=== PATIENT | male | born 1955 | race African-American/Black ===

== ENCOUNTER 2019-02-18 02:19 | Inpatient (IN) | payer MEDICARE, MEDICAID, SELFPAY ==
[2019-02-18] VITALS (30 sets, daily range): BP systolic 87–168; BP diastolic 66–116; PULSE 95–192; RESP 14–35; TEMP 36.6–37.5; O2SAT 53–100
--- NOTE | ~2019-02-18 | XR_ITS ---
EXAMINATION: XR chest 1V portable DATE: 02/20/2019 06:43 INDICATION: Mechanical ventilation TECHNIQUE: frontal view of the chest was obtained. COMPARISON: Chest radiograph dated 02/19/19 FINDINGS: Endotracheal tube tip 2.9 cm above the cristina. Nasogastric tube tip in proximal side port in the body of the stomach. Percutaneous gastrostomy tube bulb projects over the body of the stomach. Lungs are clear with no focal airspace opacities, pleural effusion, pulmonary edema or pneumothorax. The cardiomediastinal silhouette is normal. 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 IMPRESSION: 1. Lines and tubes in expected positions. No acute cardiopulmonary disease. Reviewed, dictated and finalized at location A. Y MAKER
--- NOTE | ~2019-02-18 | XR_ITS ---
XR chest 1V portable DATE: 02/19/2019 06:03 INDICATION: Respiratory distress, mechanical ventilation TECHNIQUE: Portable supine AP chest on 02/19/2019 at 0531 hours COMPARISON: 02/18/2019 portable AP chest at 0303 hours FINDINGS: Endotracheal tube in satisfactory position, distal tip 3.8 cm above cristina. NG tube is note d in the stomach, the proximal port just beyond the diaphragmatic hiatus. No central lines. Mild infiltrate or atelectasis is suggested in the lower lung zones, right greater than left. Bilateral hyperinflation. Normal heart size. Aortic unfolding. No pulmonary vascular congestion or pleural effusion or pneumoth orax. IMPRESSION: Bilateral lower lung infiltrate, primarily on the right Reviewed, dictated and finalized at location A. IN FIXER
--- NOTE | ~2019-02-18 | XR_ITS ---
EXAMINATION: XR chest 1V portable DATE: 02/24/2019 06:00 INDICATION: Acute respiratory failure TECHNIQUE: frontal view of the chest was obtained. COMPARISON: Chest radiograph dated 02/23/2019 FINDINGS: Left internal jugular central venous catheter with distal tip at the midsuperior vena cava. Persisten t mild increased reticular pattern in the bilateral lower lung zones. No pleural effusion or pneumoth orax. Heart size is normal. Moderate degenerative skeletal changes at the bilateral shoulders. IMPRESSION: 1. Unchanged mild increased interstitial pattern at the bilateral lower lung zones which could repres ent atelectasis, pneumonia or mild pulmonary edema. Reviewed, dictated and finalized at location A. UNITY THEATER ACTOR IMPRESSION: 1. Unchanged mild increased interstitial pattern at the bilateral lower lung [place] which could represent atelectasis, pneumonia or mild pulmonary edema.
--- NOTE | ~2019-02-18 | XR_ITS ---
EXAMINATION: XR chest 1V portable DATE: 02/22/2019 05:45 INDICATION: Acute respiratory failure. TECHNIQUE: A single frontal view of the chest was obtained. COMPARISON: Chest single view 02/21/2019 FINDINGS: The chest demonstrates clear lungs without pneumonia, pleural effusion, or pneumothorax. Th e heart size is normal. The endotracheal tube tip is 2.7 cm above the cristina. A left internal jugular central venous catheter is seen with tip in the superior vena cava. The nasogastric tube tip is in t he stomach. IMPRESSION: 1. No acute cardiopulmonary disease. Reviewed, dictated and finalized at location A. ITAL SUPERINTENDENT
--- NOTE | ~2019-02-18 | XR_ITS ---
XR chest ET placement DATE: 02/18/2019 03:14 INDICATION: Cough, shortness of breath TECHNIQUE: Portable supine AP chest on 02/18/2019 at 0303 hours COMPARISON: 01/31/2019 portable AP chest FINDINGS: An endotracheal tube is in place in satisfactory position, the distal tip 4.3 cm above lucas na. Bilateral hyperinflation. There is patchy infiltrate at the right lung base which may be due to pneum onia or aspiration pneumonitis. The lungs otherwise appear clear of infiltrate or consolidation. No p leural effusion or pulmonary vascular congestion or pneumothorax. Normal heart size. There is aortic unfolding. No hilar or mediastinal enlargement is evident. IMPRESSION: ET tube in satisfactory position Right basilar right lower lobe infiltrate which may be due to pneumonia or aspiration pneumonitis Bilateral hyperinflation Reviewed, dictated and finalized at Location A. Reviewed, dictated and finalized at location A. TEGIC PLANNING MANAGER IMPRESSION: ET tube in satisfactory position Right basilar right lower lobe infiltrate which may be due to pneumonia or aspi ration pneumonitis Bilateral hyperinflation
--- NOTE | ~2019-02-18 | XR_ITS ---
EXAMINATION: XR chest 1V portable DATE: 02/23/2019 06:48 INDICATION: Acute respiratory failure TECHNIQUE: frontal view of the chest was obtained. COMPARISON: Chest radiograph dated 02/22/2019 FINDINGS: Left internal jugular central venous catheter with distal tip at the midsuperior vena cava. Subtle in creased opacities in the right lower lung zone. No pleural effusion or pneumothorax. Heart size is no rmal. Degenerative skeletal changes in the spine and at both shoulders. IMPRESSION: 1. Subtle increasing opacities in the right lower lung zone which could represent atelectasis, pneumo sheryl or mild pulmonary edema. Reviewed, dictated and finalized at location A. NICAL ARCHITECT IMPRESSION: 1. Subtle increasing opacities in the right lower lung zone which could represe nt atelectasis, pneumonia or mild pulmonary edema.
--- NOTE | ~2019-02-18 | XR_ITS ---
EXAMINATION: XR chest 1V portable DATE: 02/21/2019 06:19 INDICATION: Acute respiratory failure. TECHNIQUE: A single frontal view of the chest was obtained on 2 radiographs. COMPARISON: Chest single view 02/20/2019, chest 2 views 01/06/2019 FINDINGS: The patient is rotated to his right. There is mild elevation of right hemidiaphragm. No pne umonia, pleural effusion, or pneumothorax. The heart size is normal. The endotracheal tube tip is 2.5 cm above the cristina. A left internal jugular central venous catheter is seen with tip in the superio r vena cava. IMPRESSION: 1. No acute cardiopulmonary disease. Reviewed, dictated and finalized at location D. RE ENGINEER
--- NOTE | ~2019-02-18 | XR_ITS ---
XR chest port-a-cath/central 02/20/2019 11:52 Indication: Central line placement Procedure: AP view of the chest Comparison: Comparison to multiple prior studies sequentially, with oldest reviewed study dated 01/22. Findings: Endotracheal tube tip 2.6 cm above the cristina. NG tube in the stomach. Left IJ central line tip in the CC. Subtle right basilar infiltrates. No pleural effusion, edema or pneumothorax. Impression: 1: Subtle right basilar infiltrates, atelectasis versus pneumonia. Reviewed, dictated and finalized at location A. MATIC EQUIPMENT TECHNICIAN Impression: 1: Subtle right basilar infiltrates, atelectasis versus pneumonia.
--- NOTE | ~2019-02-18 | XR_ITS ---
XR abdomen NG/feed tube insert DATE: 02/18/2019 04:36 INDICATION: Nasogastric tube placement TECHNIQUE: Portable supine AP view on 02/18/2019 at 0431 hours COMPARISON: None FINDINGS: A nasogastric tube is present in the gastric fundus, the proximal port situated just distal to the diaphragmatic hiatus. A catheter overlies the lumbar spine. Degenerative spurring of the thoracic and lumbar spine. Possible fracture deformity, likely chronic, of L1. IMPRESSION: NG tube in gastric fundus Reviewed, dictated and finalized at Location A. Reviewed, dictated and finalized at location A. WORKER IMPRESSION: NG tube in gastric fundus
--- NOTE | 2019-02-18 02:21 | ED.SOB ---
HPI - SOB/Dyspnea General Chief Complaint: Shortness of Breath/Dyspnea Stated Complaint: resp distress Time Seen by Provider: 02/18/19 02:22 Source: EMS Mode of arrival: EMS Limitations: other (Pt is nonverbal.) History of Present Illness HPI Narrative: The pt is a 64 y/o male who presents to the ED, via EMS, c/o respiratory distress onset approximately 0200. Per EMS, a nurse at [facility] went to feed him at 0200 and noticed him gurgling. EMS notes that the pt recently was discharged from this hospital after he had pneumonia. Per EMS, pt will look around when stimulated physically, but is nonverbal otherwise. HPI is limited due to the pt being nonverbal. MD elicited complaint: shortness of breath (Respiratory distress) Pertinent past history: pneumonia Onset (ago): minute(s) (Approximately 20) Associated symptoms: other (Unobtainable) Related Data Home Medications Medication Instructions Recorded Confirmed Eliquis 5 mg FEEDING TUBE BID 01/06/19 02/18/19 Probiotic (S.boulardii) 250 mg FEEDING TUBE BID 01/06/19 02/18/19 cholecalciferol (vitamin D3) 1,000 unit FEEDING TUBE DAILY 01/06/19 02/18/19 [Vitamin D3] docusate sodium 50 mg FEEDING TUBE DAILY 01/06/19 02/18/19 levetiracetam [Keppra] 1,500 mg FEEDING TUBE Q12H 01/06/19 02/18/19 oxcarbazepine 300 mg FEEDING TUBE TID 01/06/19 02/18/19 risperidone 1 mg FEEDING TUBE BID 01/06/19 02/18/19 trazodone 25 mg FEEDING TUBE HS PRN 01/06/19 02/18/19 valproic acid (as sodium salt) 500 mg FEEDING TUBE TID 01/06/19 02/18/19 metoprolol tartrate 25 mg FEEDING TUBE DAILY 02/18/19 02/18/19 Allergies Allergy/AdvReac Type Severity Reaction Status Date / Time aspirin Allergy Unknown Unknown Verified 01/31/19 18:16 codeine Allergy Unknown Unknown Verified 01/31/19 18:16 morphine Allergy Unknown Unknown Verified 01/31/19 18:16 Review of Systems Review of Systems: ROS unobtainable: other (due to pt being nonverbal.) PMF Past Medical History Medical History Acute hypokalemia Chronic anticoagulation On Eliquis Due to chronic atrial fibrillation Chronic atrial fibrillation CVA (cerebral vascular accident) Hepatitis C Hypertension Pneumonia Schizoaffective schizophrenia Seizure disorder Sepsis Surgical History Surgical History Gastrostomy tube dependent Family History Family History Unknown Unknown family medical history Social History Social History Social History: The patient resides at [facility]. He is chronically NPO with a g-tube in place. It is unclear how long the patient has been in a care home but his current care home orders appears start in August of 2018. The patient was probably a smoker as he repetitively asks for a dispensary technician. His alcohol use history is unobtainable. The patient has a state resuscitation form on his chart with full code marked however the form has not been signed. Smoking status: Former smoker Alcohol intake: unknown Substance use: unknown Substance use type: does not use Additional living arrangements comments: Lives at [facility]. Additional occupation/education comments: Disabled Gender identity (if verbalized by the patient): Male Spiritual care concerns: No Agree to blood products: Yes Exam Narrative: Exam Narrative: Physical exam is limited due to the pt's clinical condition. Const: General: in distress severe and ill appearing acutely and chronically Resp: Effort & Inspection: other (Gasping respirations) Auscultation: diminished lung sounds and other (Gurgling upper airway noises noted) Cardio: Rate: tachycardic Rhythm: abnormal rhythm irregularly irregular Skin: General skin exam: normal color Neuro: Speech: total aphasia Cours
[2019-02-18] MEDS: MIDAZOLAM HCL 2 MG/2 ML VIAL 4 MG IV PUSH (02:48)
[2019-02-18] MEDS: SODIUM CHLORIDE 0.9% IV 1,000 ML 999 ML (03:03)
[2019-02-18 03:04] LABS: Hematocrit 37.7 % (42.0-52.0); Mean Corpuscular HGB Conc 29.2 g/dl (32-36); Mean Corpuscular Hemoglobin 29.1 pg (26-34); Mean Corpuscular Volume 99.7 fl (80-100); Red Blood Count 3.78 M/mm3 (4.6-6.20); Red Cell Distribution Width 14.7 % (11.5-14.5)
[2019-02-18] MEDS: PROPOFOL IV EMULSION 100 ML 2 MG (03:11)
[2019-02-18 03:15] LABS: Lactic Acid Reflex 3.8 mmol/L (0.7-2.1); Partial Thromboplastin Time 29.5 SECONDS (22.3-36.8)
[2019-02-18 03:17] LABS: Alanine Aminotransferase 20 U/L (4-50); Albumin Level 2.9 g/dL (3.5-5.1); Alkaline Phosphatase 163 U/L (38-126); Aspartate Amino Transferase 53 U/L (17-59); Bilirubin,Total 0.7 mg/dL (0.2-1.3); Blood Urea Nitrogen 28 mg/dL (9-20); CRP 5.4 mg/dL (<1.0); Calcium 9.1 mg/dL (8.4-10.2); Carbon Dioxide 23 mmol/L (22-30); Chloride 108 mmol/L (98-107); Estimated Glomerular Filt Rate > 60; Glucose 200 mg/dL (75-110); Potassium 5.4 mmol/L (3.4-5.0); Sodium 140 mmol/L (137-145)
[2019-02-18 03:20] LABS: INR 1.5; Prothrombin Time 17.4 Seconds (11.1-14.7)
[2019-02-18 03:25] LABS: Band Neutrophils Percent 2 % (0-6); Lymphocytes Absolute Manual 7.35 K/mm3 (1.1-4.5); Metamyelocytes Percent 2 %; Monocytes Absolute Manual 1.05 K/mm3 (0.1-0.90); Monocytes Percent Manual 5 % (3-9); Neutrophils Absolute Manual 12.18 K/mm3 (1.3-6.7); Neutrophils Percent Manual 56 % (46-73); Total Cells Counted 100
[2019-02-18 03:26] LABS: Platelet Clumps Present; Platelet Estimate Adequate (Adequate)
[2019-02-18] MEDS: SODIUM CHLORIDE 0.9% IV 1,000 ML 999 ML IV CONT (03:27)
[2019-02-18 03:29] LABS: Atypical Lymphocytes Present; Hypochromasia 1+ (NORMAL); Large Platelets Present
[2019-02-18 03:46] LABS: Base Excess ABG -4.5 mEq/l (+/-2.0); Fractional Inspired Oxygen 50 %; HCO3 ABG 20.7 mEq/l (22.0-26.0); Oxygen Content ABG 14.9 %vol (16.0-22.0); Oxygen Saturation ABG 97.8 % (95.0-100.0); Oxyhemoglobin 96.2 % THb (90.0-100.0); PCO2 ABG 38.5 mmHg (35.0-45.0); PO2 ABG 109.2 mmHg (80.0-100.0); PO2 FiO2 Ratio Arterial Blood 2.18 %; Total Hemoglobin 10.9 g/dL (12.0-18.0); pH ABG 7.348 (7.350-7.450)
[2019-02-18 03:47] LABS: Modified Allen's Test Unable to perform; Site Drawn RIGHT BRACHIAL
[2019-02-18 03:48] LABS: Device VENTILATOR
[2019-02-18 03:49] LABS: Arterial Blood Gas PEEP 5 cmH2O; Arterial Blood Gas Tidal Volume 450 ml; Arterial Blood Gas Vent Mode CMV; Arterial Blood Gas Ventilator rate 12 /MIN
[2019-02-18] MEDS: AMPICILLIN SODIUM/SULBACTAM 3 GM in SODIUM CHLORIDE 0.9% IV 100 ML IVPB ×4 (04:08→23:16)
[2019-02-18 04:15] LABS: Add Urine Microscopic? YES; Appearance Urine Clear (Clear); Bacteria Urine Trace /hpf; Bilirubin Urine 1+ (Negative); Blood Urine Negative (Negative); Color Urine Amber (Yellow); Glucose Urine UA Negative (Negative); Hyaline Casts Urine 50+ /lpf; Ketones Urine Negative (Negative); Leukocyte Esterase Ur Negative LEU/UL (Negative); Mucus Urine Moderate /lpf; Nitrate Urine Negative (Negative); Protein Urine 1+ mg/dL (Negative); Specific Grav Ur 1.028 (1.001-1.035); Squamous Epithelial Cell Urine Moderate /hpf (Few)
--- NOTE | 2019-02-18 04:45 | PM.IMHP ---
H&P: HPI History of Present Illness Chief complaint: acute on chronic respiratory failure with hypoxia Narrative: Date and time of patient contact: 02/18/2019 at 5:45 a.m. Yves Rodriguez is a 64 year old male with a past medical history of schizoaffective schizophrenia, CVAs with chronic dysphagia, seizure disorder and gastrotomy tube dependent who presented to the ER with respiratory distress. residential staff reported that when they went into the patient's room at 2:00 a.m. to feed him the patient was gurgling. His oxygen saturations on arrival to the ER were in the 40s on 15 L non-rebreather. The patient was also found to be in AFib RVR and was started on Cardizem drip in the ER. The patient was briefly hypotensive following intubation but this has since resolved. He underwent RSI with succinylcholine, Versed and then continued sedation with propofol. Review of Systems Review of Systems: ROS unobtainable: unobtainable due to mental condition PMFSH Past Medical History Medical History Acute hypokalemia Chronic anticoagulation On Eliquis Due to chronic atrial fibrillation Chronic atrial fibrillation CVA (cerebral vascular accident) Hepatitis C Hypertension Pneumonia Schizoaffective schizophrenia Seizure disorder Sepsis Surgical History Surgical History Gastrostomy tube dependent Family History Family History Unknown Unknown family medical history Social History Social History Social History: The patient resides at [facility]. He is chronically NPO with a g-tube in place. It is unclear how long the patient has been in a group home but his current group home orders appears start in August of 2018. The patient was probably a smoker as he repetitively asks for a foundry finisher. His alcohol use history is unobtainable. The patient has a state resuscitation form on his chart with full code marked however the form has not been signed. Smoking status: Former smoker Alcohol intake: unknown Substance use: unknown Substance use type: does not use Additional living arrangements comments: Lives at [facility]. Additional occupation/education comments: Disabled Gender identity (if verbalized by the patient): Male Spiritual care concerns: No Agree to blood products: Yes Meds Home Medications and Allergies Home Medications Medication Instructions Recorded Confirmed Type Eliquis 5 mg FEEDING TUBE BID 01/06/19 02/18/19 History Probiotic (S.boulardii) 250 mg FEEDING TUBE BID 01/06/19 02/18/19 History cholecalciferol (vitamin D3) 1,000 unit FEEDING TUBE DAILY 01/06/19 02/18/19 History [Vitamin D3] docusate sodium 50 mg FEEDING TUBE DAILY 01/06/19 02/18/19 History levetiracetam [Keppra] 1,500 mg FEEDING TUBE Q12H 01/06/19 02/18/19 History oxcarbazepine 300 mg FEEDING TUBE TID 01/06/19 02/18/19 History risperidone 1 mg FEEDING TUBE BID 01/06/19 02/18/19 History trazodone 25 mg FEEDING TUBE HS PRN 01/06/19 02/18/19 History valproic acid (as sodium salt) 500 mg FEEDING TUBE TID 01/06/19 02/18/19 History metoprolol tartrate 25 mg FEEDING TUBE DAILY 02/18/19 02/18/19 History Allergies Allergy/AdvReac Type Severity Reaction Status Date / Time aspirin Allergy Unknown Unknown Verified 01/31/19 18:16 codeine Allergy Unknown Unknown Verified 01/31/19 18:16 morphine Allergy Unknown Unknown Verified 01/31/19 18:16 Vital Signs Vital Signs - 24 hr 02/18/19 02:17 02/18/19 02:43 02/18/19 02:44 Pulse Rate 192 H 152 H Respiratory Rate 35 H 33 H Blood Pressure 168/108 H 150/116 H Pulse Oximetry 53 L 96 02/18/19 02:45 02/18/19 02:48 02/18/19 02:55 Pulse Rate 172 H 132 H 172 H Respiratory Rate 18 22 H Blood Pressure 87/66 L Pulse Oximetry 95 100 96
--- NOTE | 2019-02-18 04:56 | PC.NURSE ---
0227 pt O2 saturation dropping on 15L NRB and pt being prepared for intubation. pt being oxygenated with BVM by respiratory. pt was given 20mg of etomidate and 100mg succinylcholine. ERP intubated with 7.5 ET tube and tube was 26 at teeth. respiratory started to bag pt and O2 increased to 98%.
--- NOTE | 2019-02-18 05:18 | ECG_ITS ---
Measurements Intervals [place] Rate: 151 P: [place]: 0 QRS: -36 QRSD: 68 T: 81 QT: 283 QTc: 449 Interpretive Statements ATRIAL FLUTTER/TACHYCARDIA WITH RAPID VENTRICULAR RESPONSE LEFT AXIS DEVIATION NONSPECIFIC ST & T-WAVE ABNORMALITY- DIFFUSE LEADS BASELINE ARTIFACT- V3-V6 ABNORMAL ECG Electronically Signed On 02-18-2019 8:20:11 CATEGORY DIRECTOR by Piyush Contreras D.O.
[2019-02-18] MEDS: PROPOFOL IV EMULSION 100 ML 2 MG IV CONT (05:40)
[2019-02-18 05:58] LABS: Reflex Lactic Acid Yes or No Add Lactic
[2019-02-18] MEDS: levETIRAcetam 1000MG/NACL100ML 1,000 MG/100 ML BAG 400 MG IVPB (06:14)
[2019-02-18] MEDS: LACTATED RINGERS 1,000 ML 125 ML IV CONT ×2 (06:14→15:34)
--- NOTE | 2019-02-18 06:53 | ADMGEN ---
This patient, Yves Rodriguez, was admitted to Intensive Care Unit-4 at 0534. Patient/family oriented to hospital policies and general routines including ID bracelet, bed and alarms, visiting hours, pain management, procedures, bathroom and other care routines, personal items, smoking policy, room service/diet, and visiting hours. Valuables list has been completed. Information on how to activate the Rapid Response Team has been discussed. Patient/Family are encouraged to report perceived risks to care and to ask questions if they do not understand what they are told or what they should do.
[2019-02-18 07:03] LABS: Lactic Acid 4.8 mmol/L (0.7-2.1)
--- NOTE | 2019-02-18 12:23 | WPDINTPN ---
Progress Note: A&P Assessment and Plan (1) Acute and chronic respiratory failure: Qualifiers: Respiratory failure complication: hypoxia Qualified Code(s): J96.21 - Acute and chronic respiratory failure with hypoxia Code(s): J96.20 - Acute and chronic respiratory failure, unspecified whether with hypoxia or hypercapnia Status: Acute Assessment and Plan: MV support, serial ABGs, weaning trials as warranted. (2) Aspiration into airway: Qualifiers: Encounter type: initial encounter Qualified Code(s): T17.908A - Unspecified foreign body in respiratory tract, part unspecified causing other injury, initial encounter Code(s): T17.908A - Unspecified foreign body in respiratory tract, part unspecified causing other injury, initial encounter Status: Acute Assessment and Plan: NPO (3) Seizure disorder: Code(s): G40.909 - Epilepsy, unspecified, not intractable, without status epilepticus Status: Chronic Assessment and Plan: continue home Rx (4) Chronic atrial fibrillation: Code(s): I48.20 - Chronic atrial fibrillation, unspecified Status: Chronic Assessment and Plan: rate controlled, anticoagulated Subjective Date/time seen: 02/18/19 12:23 Exam Const: Other: sedated Eyes: Conjunctivae: conjunctivae normal Sclera: sclerae normal Pupils: PERRL Chest: Chest palpation & inspection: normal inspection of the chest Other: coarse bilaterally Cardio: Heart sounds: S1 normal and S2 normal GI: Auscultation: hypoactive bowel sounds Skin: Nails: normal Neuro: Cognition (Neuro): abnormal cognition Motor exam (neuro): muscle tone abnormal and movement abnormality noted Comatose Patient: corneal reflex present and response to noxious stimuli present Extrem: General: muscle atrophy Objective Data Vital Signs Vital Signs: Vital Signs - 24 hr 02/18/19 02:17 02/18/19 02:43 02/18/19 02:44 Temperature 36.6 C Pulse Rate 192 H 152 H Respiratory Rate 35 H 33 H Blood Pressure 168/108 H 150/116 H Pulse Oximetry 53 L 96 02/18/19 02:45 02/18/19 02:48 02/18/19 02:55 Temperature Pulse Rate 172 H 132 H 172 H Respiratory Rate 18 22 H Blood Pressure 87/66 L Pulse Oximetry 95 100 96 02/18/19 03:02 02/18/19 03:09 02/18/19 03:28 Temperature Pulse Rate 140 H 135 H 123 H Respiratory Rate 22 H 22 H Blood Pressure 95/77 L 116/83 132/95 H Pulse Oximetry 95 96 99 02/18/19 04:06 02/18/19 05:12 02/18/19 05:53 Temperature Pulse Rate 126 H 129 H Respiratory Rate 18 18 Blood Pressure 117/86 139/88 Pulse Oximetry 99 99 95 02/18/19 06:00 02/18/19 07:25 02/18/19 07:59 Temperature 36.9 C 37.4 C Pulse Rate 125 H 119 H Respiratory Rate 24 H Blood Pressure 115/87 Pulse Oximetry 100 100 02/18/19 08:00 02/18/19 10:00 02/18/19 10:54 Temperature Pulse Rate 118 H 115 H 11 L Respiratory Rate 17 17 Blood Pressure 121/83 130/85 Pulse Oximetry 100 100 100 02/18/19 12:06 Temperature 37.5 C Pulse Rate 110 H Respiratory Rate 16 Blood Pressure 128/85 Pulse Oximetry 100 Intake/Output Intake/Output: Intake & Output 02/15/19 02/16/19 02/17/19 02/18/19 23:59 23:59 23:59 23:59 Intake Total 2300 Balance 2300 Meds/Results Medications: Active Medications Generic Name Dose Route Start Last Admin Trade Name Freq PRN Reason Stop Dose Admin Diltiazem HCl 100 mg in 100 mls @ 5 mls/hr 02/18/19 02:42 02/18/19 03:18 Cardizem 100 Mg/D5w 100 Ml IV CONT 02/18/19 22:41 Not Given .Q20H STA Protocol 5 MG/HR Propofol 100 mls @ 2.04 mls/hr 02/18/19 02:45 02/18/19 05:40 Diprivan IV CONT 5 mcg/kg/min .Q24H АНДРЕЙ 2 mls/hr Administration 5 MCG/KG/MIN Ampicillin Sodium/Sulbactam 100 mls @ 200 mls/hr 02/18/19 11:00 02/18/19 11:30 Sodium 3 gm/ Sodium Chloride IVPB Infused Q6HR АНДРЕЙ Infusion Lactated Ringer's 1,000 mls @ 125 mls/hr 02/18/19 04:
[2019-02-18] MEDS: PROPOFOL IV EMULSION 100 ML 2.3 MG IV CONT (19:14)
[2019-02-19] VITALS (24 sets, daily range): BP systolic 126–150; BP diastolic 76–99; PULSE 70–102; RESP 12–21; TEMP 36.6–37.2; O2SAT 99–100
[2019-02-19] MEDS: LACTATED RINGERS 1,000 ML 125 ML IV CONT ×3 (02:00→19:54)
[2019-02-19 05:02] LABS: Basophils Percent Auto 0.2 % (0.2-1.2); Eosinophils Percent Auto 0.2 % (0-4.4); Hematocrit 28.3 % (42.0-52.0); Hemoglobin 8.3 g/dL (14.0-18.0); Immature Granulocyte Absolute 0.05 K/mm3 (0.00-0.031); Immature Granulocyte Percent A 0.4 % (0-0.5); Lymphocytes Absolute Auto 2.93 K/mm3 (0.9-3.2); Lymphocytes Percent Auto 22.6 % (18.3-44.2); Mean Corpuscular HGB Conc 29.3 g/dl (32-36); Mean Corpuscular Hemoglobin 28.7 pg (26-34); Mean Corpuscular Volume 97.9 fl (80-100); Mean Platelet Volume 12.2 fl (7.4-10.4); Monocytes Absolute Auto 1.3 K/mm3 (0.1-0.6); Monocytes Percent Auto 10.1 % (2.6-8.5); Neutrophils Absolute Auto 8.6 K/mm3 (1.3-6.7); Neutrophils Percent Auto 66.5 % (45.5-73.1); Platelet Count Result 277 k/mm3 (150-375); Red Blood Count 2.89 M/mm3 (4.6-6.20); Red Cell Distribution Width 14.8 % (11.5-14.5)
[2019-02-19] MEDS: AMPICILLIN SODIUM/SULBACTAM 3 GM in SODIUM CHLORIDE 0.9% IV 100 ML IVPB ×4 (05:07→23:41)
[2019-02-19 05:13] LABS: Alanine Aminotransferase 17 U/L (4-50); Albumin Level 2.3 g/dL (3.5-5.1); Alkaline Phosphatase 107 U/L (38-126); Aspartate Amino Transferase 41 U/L (17-59); Blood Urea Nitrogen 19 mg/dL (9-20); Calcium 9.4 mg/dL (8.4-10.2); Carbon Dioxide 25 mmol/L (22-30); Chloride 111 mmol/L (98-107); Creatine Kinase 79 U/L (55-170); Estimated CRCL calculation 139 ml/min; Estimated Glomerular Filt Rate > 60; Glucose 80 mg/dL (75-110); INR 1.4; Magnesium 1.9 mg/dL (1.6-2.3); Phosphorus 3.1 mg/dL (2.5-4.5); Potassium 3.4 mmol/L (3.4-5.0); Sodium 140 mmol/L (137-145)
[2019-02-19 05:14] LABS: Partial Thromboplastin Time 28.7 SECONDS (22.3-36.8)
[2019-02-19 05:23] LABS: NT Pro B Type Natriuretic Pept 278 PG/ML (5-100)
[2019-02-19 05:25] LABS: Troponin I 0.014 ng/mL (0.000-0.034)
[2019-02-19 05:42] LABS: Alveolar/Arterial O2 Gradient 77.5 mmHg; Base Excess ABG 2.5 mEq/l (+/-2.0); Fractional Inspired Oxygen 30 %; HCO3 ABG 25.3 mEq/l (22.0-26.0); Oxygen Content ABG 13.1 %vol (16.0-22.0); Oxygen Saturation ABG 98.1 % (95.0-100.0); Oxyhemoglobin 96.6 % THb (90.0-100.0); PCO2 ABG 32.2 mmHg (35.0-45.0); PO2 ABG 98.6 mmHg (80.0-100.0); PO2 FiO2 Ratio Arterial Blood 3.29 %; Total Hemoglobin 9.5 g/dL (12.0-18.0)
[2019-02-19 05:46] LABS: Device VENTILATOR; Modified Allen's Test Pass; Site Drawn RIGHT RADIAL; pH ABG 7.513 (7.350-7.450)
[2019-02-19 05:47] LABS: Arterial Blood Gas Minute Volume 6 LPM; Arterial Blood Gas PEEP 5 cmH2O; Arterial Blood Gas Tidal Volume 450 ml; Arterial Blood Gas Vent Mode CMV; Arterial Blood Gas Ventilator rate 12 /MIN
[2019-02-19 06:06] LABS: Hypochromasia 1+ (NORMAL); Platelet Estimate Adequate (Adequate)
[2019-02-19 06:07] LABS: Stomatocytes 1+ (NORMAL)
--- NOTE | 2019-02-19 12:33 | WPDINTPN ---
Subjective Date/time seen: Assessment and Plan (1) Acute and chronic respiratory failure: MV support, serial ABGs, weaning trials as warranted. Not tolerating sedation interruption, high RR. (2) Aspiration into airway: NPO HOB elevation PPI (3) Seizure disorder: continue home Rx (4) Chronic atrial fibrillation: rate controlled, anticoagulated Subjective Date/time seen: 02/18/19 12:23 Exam Const: Other: sedated Eyes: Conjunctivae: conjunctivae normal Sclera: sclerae normal Pupils: PERRL Chest: Chest palpation & inspection: normal inspection of the chest Other: coarse bilaterally Cardio: Heart sounds: S1 normal and S2 normal GI: Auscultation: hypoactive bowel sounds Skin: Nails: normal Neuro: Cognition (Neuro): abnormal cognition Motor exam (neuro): muscle tone abnormal and movement abnormality noted Comatose Patient: corneal reflex present and response to noxious stimuli present Extrem: General: muscle atrophy Review of Systems Review of Systems: ROS unobtainable: due to endotracheal tube Objective Data Vital Signs Vital Signs: Vital Signs - 24 hr 02/18/19 14:00 02/18/19 14:04 02/18/19 16:00 Temperature Pulse Rate 106 H 107 H 107 H Respiratory Rate 15 14 Blood Pressure 126/88 141/97 H Pulse Oximetry 100 100 100 02/18/19 17:17 02/18/19 18:00 02/18/19 20:00 Temperature 37.1 C Pulse Rate 107 H 104 H 101 H Respiratory Rate 14 14 Blood Pressure 121/88 127/93 H Pulse Oximetry 100 100 100 02/18/19 20:35 02/18/19 21:55 02/18/19 22:00 Temperature Pulse Rate 99 97 97 Respiratory Rate 14 Blood Pressure 118/85 Pulse Oximetry 100 100 02/18/19 23:36 02/19/19 00:00 02/19/19 02:00 Temperature 36.6 C Pulse Rate 95 93 93 Respiratory Rate 12 12 Blood Pressure 126/83 129/82 Pulse Oximetry 100 100 100 02/19/19 02:59 02/19/19 04:00 02/19/19 05:00 Temperature 37.2 C Pulse Rate 100 102 H 99 Respiratory Rate 21 H Blood Pressure 145/95 H Pulse Oximetry 100 100 100 02/19/19 05:37 02/19/19 07:46 02/19/19 08:00 Temperature Pulse Rate 97 101 H 99 Respiratory Rate 12 Blood Pressure 150/84 H Pulse Oximetry 100 100 02/19/19 08:02 02/19/19 10:00 02/19/19 12:00 Temperature 37.2 C 36.8 C Pulse Rate 99 97 95 Respiratory Rate 19 21 H 14 Blood Pressure 144/76 H 142/97 H 135/91 H Pulse Oximetry 100 100 100 Intake/Output Intake/Output: Intake & Output 02/16/19 02/17/19 02/18/19 02/19/19 23:59 23:59 23:59 23:59 Intake Total 4437 1200 Output Total 400 300 Balance 4037 900 Meds/Results Medications: Active Medications Generic Name Dose Route Start Last Admin Trade Name Freq PRN Reason Stop Dose Admin Ampicillin Sodium/Sulbactam 100 mls @ 200 mls/hr 02/18/19 11:00 02/19/19 11:59 Sodium 3 gm/ Sodium Chloride IVPB 200 mls/hr Q6HR АНДРЕЙ Administration Lactated Ringer's 1,000 mls @ 125 mls/hr 02/18/19 04:10 02/19/19 10:19 Lr - Lactated Ringers Iv IV CONT 125 mls/hr .Q8H АНДРЕЙ Administration Propofol 100 mls @ 9.5 mls/hr 02/18/19 19:00 02/19/19 11:58 Diprivan IV CONT 25 mcg/kg/min .[id number] АНДРЕЙ 9.5 mls/hr Titration Protocol 20 MCG/KG/MIN Multi-Ingred Cream/Lotion/Oil/Oint 1 applic 02/18/19 21:00 02/19/19 08:38 Lubrifresh Pm Eye Ointment EACH EYE 1 applic Q12HR АНДРЕЙ Administration Radiology Results: ITS Impressions Abdomen X-Ray 02/18/19 07:52 IMPRESSION: NG tube in gastric fundus Chest X-Ray 02/19/19 08:09 IMPRESSION: Bilateral lower lung infiltrate, primarily on the right Labs Labs: Laboratory Results - last 24 hr 02/19/19 02/19/19 02/19/19 04:44 04:44 04:44 WBC 13.0 H RBC 2.89 L Hgb 8.3 L Hct 28.3 L MCV 97.9 MCH 28.7 MCHC 29.3 L RDW 14.8 H Plt Count 277 D MPV 12.2 H Immature Gran % (Auto) 0.4 Neut % (Auto) 66.5 Lymph % (Auto) 22.6 Sampson % (Auto) 10.1 H Eos %
[2019-02-19] MEDS: METOPROLOL TARTRATE 12.5 MG TABLET PO ×2 (14:56→19:53)
[2019-02-19] MEDS: PANTOPRAZOLE SODIUM IV 40 MG VIAL IV PUSH (14:56)
[2019-02-19] MEDS: PROPOFOL IV EMULSION 100 ML 7.6 MG IV CONT (15:09)
[2019-02-20] VITALS (26 sets, daily range): BP systolic 67–184; BP diastolic 57–87; PULSE 72–88; RESP 12–16; TEMP 36.5–37.1; O2SAT 97–100; BMI 19.1
[2019-02-20] MEDS: PROPOFOL IV EMULSION 100 ML 7.6 MG IV CONT (02:16)
[2019-02-20 03:32] LABS: Alveolar/Arterial O2 Gradient 77.3 mmHg; Base Excess ABG -0.7 mEq/l (+/-2.0); Fractional Inspired Oxygen 30 %; HCO3 ABG 22.4 mEq/l (22.0-26.0); Oxygen Content ABG 12.3 %vol (16.0-22.0); Oxyhemoglobin 95.8 % THb (90.0-100.0); PO2 ABG 100.2 mmHg (80.0-100.0); PO2 FiO2 Ratio Arterial Blood 3.34 %; pH ABG 7.477 (7.350-7.450)
[2019-02-20 03:34] LABS: Device VENTILATOR; Modified Allen's Test Pass; Site Drawn RIGHT RADIAL
[2019-02-20 03:35] LABS: Arterial Blood Gas PEEP 5 cmH2O; Arterial Blood Gas Tidal Volume 450 ml; Arterial Blood Gas Vent Mode CMV; Arterial Blood Gas Ventilator rate 12 /MIN
[2019-02-20] MEDS: LACTATED RINGERS 1,000 ML 125 ML IV CONT ×3 (04:27→23:34)
[2019-02-20] MEDS: AMPICILLIN SODIUM/SULBACTAM 3 GM in SODIUM CHLORIDE 0.9% IV 100 ML IVPB ×4 (04:28→23:34)
[2019-02-20] MEDS: PANTOPRAZOLE SODIUM IV 40 MG VIAL IV PUSH (08:54)
[2019-02-20] MEDS: METOPROLOL TARTRATE 12.5 MG TABLET PO (08:56)
--- NOTE | 2019-02-20 09:48 | WPDINTPN ---
Progress Note: A&P Assessment and Plan (1) Acute and chronic respiratory failure: Qualifiers: Respiratory failure complication: hypoxia Qualified Code(s): J96.21 - Acute and chronic respiratory failure with hypoxia Code(s): J96.20 - Acute and chronic respiratory failure, unspecified whether with hypoxia or hypercapnia Status: Acute Assessment and Plan: patient intubated on 02/18/2019 for presumed aspiration pneumonia/pneumonitis - patient on mechanical ventilation, 30% FiO2, chest x-ray and ABGs reviewed. Will continue current settings - continue Unasyn, added vancomycin as blood cultures growing gram-positive cocci in clusters 1 of 2 bottles - propofol for sedation, maintain RASS of 0 to -2 (2) Seizure disorder: Code(s): G40.909 - Epilepsy, unspecified, not intractable, without status epilepticus Status: Chronic Assessment and Plan: will start Keppra and valproic acid per G-tube (3) Chronic atrial fibrillation: Code(s): I48.20 - Chronic atrial fibrillation, unspecified Status: Chronic Assessment and Plan: patient presented with atrial fibrillation RVR, post intubation has been in sinus rhythm - will continue Eliquis per tube (4) Bacteremia: Code(s): R78.81 - Bacteremia Status: Acute Assessment and Plan: blood cultures growing Gram positive cocci in clusters 1/2 bottles. Await identification and sensitivities - started patient on vancomycin, will deescalate if contaminant (5) DVT prophylaxis: Code(s): Z29.9 - Encounter for prophylactic measures, unspecified Status: Acute Assessment and Plan: Eliquis per tube (6) Anemia: Code(s): D64.9 - Anemia, unspecified Status: Acute Assessment and Plan: anemia of chronic disease most likely - will continue to monitor hemoglobin levels Additional Plan discussed with patient's sister and updated her with his condition and plan of care. Patient's mother is the POA, we had the daughter become the surrogate POA for healthcare. Sister and mother decided to make him a do not resuscitate. Orders entered in the system. - Patient also has infiltration of the IV on his right upper extremity forming a blister, following Denudation of the skin. will keep an eye for skin necrosis. Code status: do not resuscitate critical care time spent: 33 minutes Subjective Date/time seen: 02/20/19 09:48 Interval history: Patient admitted on 02/18 with acute on chronic respiratory failure with hypoxia requiring intubation. A.fib RVR, severe sepsis 02/20: patient remains intubated on CMV mode of ventilation, 30% FiO2 with O2 sats. Patient has had low urine output. Right upper extremity blister with open skin secondary to IV infiltration. Patient remains on propofol infusion for sedation, Review of Systems Review of Systems: ROS unobtainable: due to endotracheal tube Exam Const: General: comfortable and no acute distress Other: HENMT: Other: ETT in place Eyes: Conjunctivae: conjunctivae normal Sclera: sclerae normal Pupils: PERRL Neck: Neck: supple and no JVD Chest: Chest palpation & inspection: normal inspection of the chest Other: coarse bilaterally Resp: Effort & Inspection: normal respiratory effort Auscultation: rales bilateral at the base and diminished lung sounds Cardio: Rate: regular rate Rhythm: regular rhythm Heart sounds: S1 normal and S2 normal GI: Inspection: non-distended GI Palp: Yes soft and No tender Auscultation: normal bowel sounds and hypoactive bowel sounds Other: G-tube in place : Other: Sánchez catheter in place Urinary Catheter: Urinary Catheter: patent and draining and urine dark Skin: Nails: normal Other: right upper extremity IV site infiltration with blister and denudation of the skin. Pressure ulcers Neuro: Cranial nerves: Yes PERRL Motor exam (neuro): muscle tone abnormal Comatose Patient: c
[2019-02-20] MEDS: LIDOCAINE HCL 1% LOCAL INJ 2 ML AMPUL 5 ML INFILTRATE (11:15)
[2019-02-20] MEDS: HEPARIN SODIUM 5,000 UNITS/ML VIAL 5000 UNITS SUB-Q (11:48)
[2019-02-20] MEDS: SILVERGEL (ELTA) 45 ML 1 APPLIC TOPICAL (11:48)
--- NOTE | 2019-02-20 11:54 | PM.IMPN ---
Progress Note: A&P Assessment and Plan (1) Acute respiratory failure with hypoxia: Code(s): J96.01 - Acute respiratory failure with hypoxia Status: Acute (2) Atrial fibrillation with RVR: Code(s): I48.91 - Unspecified atrial fibrillation Status: Acute (3) Aspiration into airway: Qualifiers: Encounter type: initial encounter Qualified Code(s): T17.908A - Unspecified foreign body in respiratory tract, part unspecified causing other injury, initial encounter Code(s): T17.908A - Unspecified foreign body in respiratory tract, part unspecified causing other injury, initial encounter Status: Acute (4) Seizure disorder: Code(s): G40.909 - Epilepsy, unspecified, not intractable, without status epilepticus Status: Chronic (5) Anemia: Code(s): D64.9 - Anemia, unspecified Status: Acute (6) Bacteremia: Code(s): R78.81 - Bacteremia Status: Acute Additional Plan Patient presented in acute respiratory failure requiring intubation. Patient with known aspiration risk and has GTube currently in place. 02/20/19: Acute respiratory failure related to recurent aspiration. WBC and lactic better yesterday. Continue broad spectrum abx. Need to monitor the RUE for skin necrosis. Business Systems Developer informed by RN. Patient currently sedated. Signed form to allow sister to help with making medical decisions for him. Parameters for BB given the low BP. Resume Keppra? HH noted. No evidence of blood loss. Monitor closely. No labs today but may order now since line placed. BCx (1of2) growing CNStaph - possibly contaminate. Continue Vanco. Repeat BCx. Add nebs. Watch HR. Subjective Date/time seen: 02/20/19 11:54 Interval history: 64yo male here for acute respiratory failure. Patietn intubated and sedated and thus unable to provide history. No issues overnight per RN but BP lower this morning. Having access issues so midline placed. Exam Narrative: Exam Narrative: 83 Gen - intubated and sedated HEENT - ETT and OG secured Neck - left midline in place Chest - mildly coarse BS anteriorly CV - RRR S1/S2 Abd - soft, GTube clean, dry and intact. hypoactive BS - Sánchez secured draining orange-yellow urine Ext - in the right forearm at the IV site (and more proximal) there are small and large flaccid blisters (vanco running). When IV was being removed by RN, the skin tore resulting in a large tear. Neuro - sedated Psych - Unable to assess due to sedation/clinical status Skin - as above Objective Data Vital Signs Vital Signs: Vital Signs - 24 hr 02/19/19 12:00 02/19/19 14:00 02/19/19 14:35 Temperature 98.3 F Pulse Rate 95 83 83 Respiratory Rate 14 13 Blood Pressure 135/91 H 144/91 H Pulse Oximetry 100 100 100 02/19/19 14:56 02/19/19 16:00 02/19/19 16:03 Temperature 98.1 F Pulse Rate 82 72 73 Respiratory Rate 12 Blood Pressure 145/89 H Pulse Oximetry 99 02/19/19 17:30 02/19/19 18:00 02/19/19 19:53 Temperature Pulse Rate 83 81 84 Respiratory Rate 16 Blood Pressure 147/99 H Pulse Oximetry 100 99 02/19/19 20:00 02/19/19 20:10 02/19/19 22:00 Temperature 98.7 F Pulse Rate 81 82 70 Respiratory Rate 18 12 Blood Pressure 143/90 H 144/84 H Pulse Oximetry 100 100 100 02/19/19 22:27 02/20/19 00:00 02/20/19 00:46 Temperature 97.9 F Pulse Rate 72 78 78 Respiratory Rate 12 Blood Pressure 149/86 H Pulse Oximetry 100 100 100 02/20/19 02:00 02/20/19 04:00 02/20/19 05:37 Temperature 97.7 F Pulse Rate 80 80 81 Respiratory Rate 12 12 Blood Pressure 141/78 H 137/76 Pulse Oximetry 100 100 100 02/20/19 06:00 02/20/19 07:45 02/20/19 08:00 Temperature Pulse Rate 78 77 78 Respiratory Rate 12 12 Blood Pressure 130/68 94/66 L Pulse Oximetry 100 100 100 02/20/19 10:00 02/20/19 10:44 Temperature Pulse Rate 82 83 Respiratory Rate 16 Blood Pressure 94/66 L Pulse Oximetry 100 10
[2019-02-20 13:16] LABS: Basophils Percent Auto 0.1 % (0.2-1.2); Eosinophils Percent Auto 0.4 % (0-4.4); Hematocrit 26.6 % (42.0-52.0); Hemoglobin 7.9 g/dL (14.0-18.0); Immature Granulocyte Absolute 0.03 K/mm3 (0.00-0.031); Immature Granulocyte Percent A 0.3 % (0-0.5); Lymphocytes Percent Auto 21.9 % (18.3-44.2); Mean Corpuscular HGB Conc 29.7 g/dl (32-36); Mean Corpuscular Hemoglobin 29.2 pg (26-34); Mean Corpuscular Volume 98.2 fl (80-100); Mean Platelet Volume 11.8 fl (7.4-10.4); Monocytes Absolute Auto 1.1 K/mm3 (0.1-0.6); Monocytes Percent Auto 11.7 % (2.6-8.5); Neutrophils Percent Auto 65.6 % (45.5-73.1); Platelet Count Result 273 k/mm3 (150-375); Red Blood Count 2.71 M/mm3 (4.6-6.20); Red Cell Distribution Width 14.9 % (11.5-14.5); White Blood Count 9.1 K/mm3 (4.5-10.0)
[2019-02-20 13:25] LABS: INR 1.3; Prothrombin Time 15.7 Seconds (11.1-14.7)
[2019-02-20 13:26] LABS: Partial Thromboplastin Time 32.8 SECONDS (22.3-36.8)
[2019-02-20 13:27] LABS: Lactic Acid 0.8 mmol/L (0.7-2.1)
[2019-02-20 13:29] LABS: Alanine Aminotransferase 20 U/L (4-50); Albumin Level 2.3 g/dL (3.5-5.1); Alkaline Phosphatase 101 U/L (38-126); Aspartate Amino Transferase 52 U/L (17-59); Bilirubin,Total 1.2 mg/dL (0.2-1.3); Blood Urea Nitrogen 16 mg/dL (9-20); CRP 8.2 mg/dL (<1.0); Calcium 9.2 mg/dL (8.4-10.2); Carbon Dioxide 27 mmol/L (22-30); Chloride 111 mmol/L (98-107); Creatine Kinase 39 U/L (55-170); Estimated CRCL calculation 177 ml/min; Estimated Glomerular Filt Rate > 60; Glucose 72 mg/dL (75-110); Magnesium 1.7 mg/dL (1.6-2.3); Phosphorus 3.7 mg/dL (2.5-4.5); Potassium 2.9 mmol/L (3.4-5.0); Sodium 142 mmol/L (137-145)
[2019-02-20 13:36] LABS: NT Pro B Type Natriuretic Pept 544 PG/ML (5-100)
[2019-02-20 13:38] LABS: Troponin I < 0.012 ng/mL (0.000-0.034)
[2019-02-20] MEDS: LEVALBUTEROL NEB 1.25 MG/3 ML 0.63 MG INHALATION ×2 (13:52→20:54)
[2019-02-20] MEDS: PROPOFOL IV EMULSION 100 ML 5.7 MG IV CONT (15:23)
[2019-02-20] MEDS: APIXABAN 5 MG TABLET FEED TUBE (16:38)
[2019-02-20] MEDS: SACCHAROMYCES BOULARDII 250 MG CAPSULE FEED TUBE (16:38)
[2019-02-20] MEDS: risperiDONE 1 MG TABLET FEED TUBE (16:39)
[2019-02-20] MEDS: DOCUSATE SODIUM LIQ 100 MG/10 ML UDC 50 MG FEED TUBE (16:39)
[2019-02-20] MEDS: levETIRAcetam ORAL SOL 500 MG/5 ML UDC 1500 MG FEED TUBE ×2 (16:39→20:32)
[2019-02-20] MEDS: CHOLECALCIFEROL 1,000 UNIT TABLET 1000 UNITS FEED TUBE (16:39)
[2019-02-21] VITALS (25 sets, daily range): BP systolic 121–154; BP diastolic 56–89; PULSE 58–94; RESP 8–22; TEMP 36.6–37.1; O2SAT 98–100
[2019-02-21] MEDS: LEVALBUTEROL NEB 1.25 MG/3 ML 0.63 MG INHALATION ×4 (02:04→20:48)
[2019-02-21 04:43] LABS: Alveolar/Arterial O2 Gradient 63.9 mmHg; Base Excess ABG 3.8 mEq/l (+/-2.0); Carboxyhemoglobin 0.3 % THb (0-2.0); Fractional Inspired Oxygen 30 %; HCO3 ABG 26.8 mEq/l (22.0-26.0); Methemoglobin ABG 0.5 %THb (0-1.5); Oxygen Saturation ABG 98.4 % (95.0-100.0); Oxyhemoglobin 96.5 % THb (90.0-100.0); PO2 ABG 110.1 mmHg (80.0-100.0); PO2 FiO2 Ratio Arterial Blood 3.67 %; Reduced Hemoglobin 2.7 %THb (0-5.0); Total Hemoglobin 8.7 g/dL (12.0-18.0)
[2019-02-21 04:44] LABS: pH ABG 7.515 (7.350-7.450)
[2019-02-21 04:45] LABS: Arterial Blood Gas PEEP 5 cmH2O; Arterial Blood Gas Tidal Volume 450 ml; Arterial Blood Gas Vent Mode CMV; Arterial Blood Gas Ventilator rate 12 /MIN; Device VENTILATOR; Modified Allen's Test Pass; Site Drawn RIGHT RADIAL
[2019-02-21] MEDS: AMPICILLIN SODIUM/SULBACTAM 3 GM in SODIUM CHLORIDE 0.9% IV 100 ML IVPB ×4 (05:09→23:16)
[2019-02-21] MEDS: PROPOFOL IV EMULSION 100 ML 5.7 MG IV CONT (05:10)
[2019-02-21 05:49] LABS: Hematocrit 24.6 % (42.0-52.0); Hemoglobin 7.4 g/dL (14.0-18.0); Mean Corpuscular HGB Conc 30.1 g/dl (32-36); Mean Corpuscular Hemoglobin 29.6 pg (26-34); Mean Corpuscular Volume 98.4 fl (80-100); Mean Platelet Volume 11.8 fl (7.4-10.4); Platelet Count Result 280 k/mm3 (150-375); Red Cell Distribution Width 14.8 % (11.5-14.5); White Blood Count 8.3 K/mm3 (4.5-10.0)
[2019-02-21 05:50] LABS: Lactic Acid 1.4 mmol/L (0.7-2.1)
[2019-02-21 06:03] LABS: Blood Urea Nitrogen 13 mg/dL (9-20); Calcium 8.7 mg/dL (8.4-10.2); Carbon Dioxide 27 mmol/L (22-30); Chloride 109 mmol/L (98-107); Estimated CRCL calculation 177 ml/min; Estimated Glomerular Filt Rate > 60; Glucose 96 mg/dL (75-110); Magnesium 1.7 mg/dL (1.6-2.3); Phosphorus 3.4 mg/dL (2.5-4.5); Potassium 2.8 mmol/L (3.4-5.0); Sodium 141 mmol/L (137-145)
[2019-02-21] MEDS: MAGNESIUM SULF 2 GM/WATER 50ML 2 GM/50 ML BAG IVPB (06:38)
[2019-02-21] MEDS: POTASSIUM CHLORIDE 20 MEQ TABLET 40 MEQ PO (06:38)
[2019-02-21] MEDS: SILVERGEL (ELTA) 45 ML 1 APPLIC TOPICAL (08:48)
[2019-02-21] MEDS: PANTOPRAZOLE SODIUM IV 40 MG VIAL IV PUSH (08:48)
--- NOTE | 2019-02-21 08:50 | PM.IMPN ---
Progress Note: A&P Assessment and Plan (1) Acute and chronic respiratory failure: Qualifiers: Respiratory failure complication: hypoxia Qualified Code(s): J96.21 - Acute and chronic respiratory failure with hypoxia Code(s): J96.20 - Acute and chronic respiratory failure, unspecified whether with hypoxia or hypercapnia Status: Acute Assessment and Plan: Likely due to recurrent aspiration of his tube feeds. Remains sedated on ventilator. Appreciate help from core stacker. Discussed with core stacker today. IV Unasyn and vancomycin. Continue IV fluids. Continue nebulizer treatments. Will continue to monitor. (2) Aspiration into airway: Qualifiers: Encounter type: initial encounter Qualified Code(s): T17.908A - Unspecified foreign body in respiratory tract, part unspecified causing other injury, initial encounter Code(s): T17.908A - Unspecified foreign body in respiratory tract, part unspecified causing other injury, initial encounter Status: Acute Assessment and Plan: Patient has chronic dysphagia. Tube feedings initially held but have now been resumed. Will continue to monitor closely. (3) Atrial fibrillation with RVR: Code(s): I48.91 - Unspecified atrial fibrillation Status: Acute Assessment and Plan: Initially presented with atrial fibrillation with RVR. Known chronic atrial fibrillation. Telemetry reviewed on 02/21/2019 with heart rate currently controlled. Was not on IV diltiazem on admission but no longer. Now remains controlled with metoprolol. Continue Eliquis for anticoagulation. Will monitor. (4) Seizure disorder: Code(s): G40.909 - Epilepsy, unspecified, not intractable, without status epilepticus Status: Chronic Assessment and Plan: Known seizure disorder. No current seizure activity. Remains on Keppra and valproic acid per feeding tube. Will monitor. (5) Anemia: Qualifiers: Anemia type: other cause Other causes of anemia: chronic disease, other Qualified Code(s): D63.8 - Anemia in other chronic diseases classified elsewhere Code(s): D64.9 - Anemia, unspecified Status: Acute Assessment and Plan: Most likely anemia of chronic disease. Hemoglobin 7.4 today. No signs of active bleeding. Will continue to monitor. Transfuse if needed. (6) Bacteremia: Code(s): R78.81 - Bacteremia Status: Acute Assessment and Plan: One of 2 initial blood cultures positive coagulase-negative Staph. Most likely contaminant. Repeat cultures are negative at this time. Will follow. (7) DVT prophylaxis: Code(s): Z29.9 - Encounter for prophylactic measures, unspecified Status: Acute Assessment and Plan: SCDs. Time Spent With Patient Time with patient: 15 - 25 minutes Subjective Date/time seen: 02/21/19 08:50 Interval history: Date of Service: 02/21/2019. Admitted with acute on chronic respiratory failure requiring intubation. Remains on ventilator with sedation. Review of Systems Review of Systems: ROS unobtainable: due to endotracheal tube Exam Narrative: Exam Narrative: Sedated Const: General: no acute distress HENMT: Other: ET in place; OG in place Neck: Neck: supple Resp: Auscultation: no wheezes and diminished lung sounds Cardio: Rate: regular rate Rhythm: abnormal rhythm irregularly irregular GI: Inspection: non-distended GI Palp: Yes soft Other: PEG tube in place Urinary Catheter: Urinary Catheter: patent and draining and urine clear Skin: Other: abrasion right forearm Neuro: Other: sedated Extrem: General: no edema Psych: Other: sedated Objective Data Vital Signs Vital Signs: Vital Signs - 24 hr 02/20/19 10:00 02/20/19 10:44 02/20/19 11:56 Temperature 36.7 C Pulse Rate 82 83 87 Respiratory Rate 16 15 Blood Pressure 94/66 L 67/57 L Pulse Oximetry 100 100 100 02/20/19 12:00 02/20/19 13:56
[2019-02-21] MEDS: LACTATED RINGERS 1,000 ML 50 ML IV CONT (09:00)
[2019-02-21] MEDS: DOCUSATE SODIUM LIQ 100 MG/10 ML UDC 50 MG FEED TUBE (09:11)
[2019-02-21] MEDS: APIXABAN 5 MG TABLET FEED TUBE ×2 (09:11→17:40)
[2019-02-21] MEDS: CHOLECALCIFEROL 1,000 UNIT TABLET 1000 UNITS FEED TUBE (09:11)
[2019-02-21] MEDS: levETIRAcetam ORAL SOL 500 MG/5 ML UDC 1500 MG FEED TUBE ×2 (09:12→20:58)
[2019-02-21] MEDS: risperiDONE 1 MG TABLET FEED TUBE ×2 (09:12→17:40)
[2019-02-21] MEDS: SACCHAROMYCES BOULARDII 250 MG CAPSULE FEED TUBE ×2 (09:12→17:40)
--- NOTE | 2019-02-21 09:43 | WPDINTPN ---
Progress Note: A&P Assessment and Plan (1) Acute and chronic respiratory failure: Qualifiers: Respiratory failure complication: hypoxia Qualified Code(s): J96.21 - Acute and chronic respiratory failure with hypoxia Code(s): J96.20 - Acute and chronic respiratory failure, unspecified whether with hypoxia or hypercapnia Status: Acute Assessment and Plan: patient intubated on 02/18/2019 for presumed aspiration pneumonia/pneumonitis - patient on mechanical ventilation, 30% FiO2, chest x-ray and ABGs reviewed. - continue Unasyn and vancomycin blood cultures growing CoNS 1/2 bottles. Blood cultures have been repeated on 02/20/2019 - propofol for sedation, maintain RASS of 0 to -2 - will weans propofol, wake up patient and place him on SBT (2) Seizure disorder: Code(s): G40.909 - Epilepsy, unspecified, not intractable, without status epilepticus Status: Chronic Assessment and Plan: continue Keppra and valproic acid per G-tube (3) Chronic atrial fibrillation: Code(s): I48.20 - Chronic atrial fibrillation, unspecified Status: Chronic Assessment and Plan: patient presented with atrial fibrillation RVR, post intubation has been in sinus rhythm - continue Eliquis per tube (4) Bacteremia: Code(s): R78.81 - Bacteremia Status: Acute Assessment and Plan: blood cultures growing Gram positive cocci in clusters 1/2 bottles. coag-negative staph aureus. Blood cultures have been repeated on 02/20/2019 - continue vancomycin, will deescalate if 2nd set of blood cultures are negative (5) DVT prophylaxis: Code(s): Z29.9 - Encounter for prophylactic measures, unspecified Status: Acute Assessment and Plan: Eliquis per tube (6) Anemia: Code(s): D64.9 - Anemia, unspecified Status: Acute Assessment and Plan: anemia of chronic disease most likely - will continue to monitor hemoglobin levels Additional Plan discussed with family and updated them with patient's condition and plan of care. Code status: do not resuscitate critical care time spent: 31 minutes Subjective Date/time seen: 02/21/19 09:43 Interval history: Patient admitted on 02/18 with acute on chronic respiratory failure with hypoxia requiring intubation. A.fib RVR, severe sepsis 02/21: patient remains intubated on CMV mode of ventilation, 30% FiO2 with O2 sats. Patient with adequate urine output. Right upper extremity blister with open skin secondary to IV infiltration, patient also has multiple small blisters on the right forearm. Patient remains on propofol infusion for sedation. hemodynamically stable. Does not open his eyes to name of follows simple commands. Patient tolerating tube feeds. WBC count has normalized Review of Systems Review of Systems: ROS unobtainable: due to endotracheal tube Exam Const: General: comfortable and no acute distress Other: HENMT: Other: ETT in place Eyes: Conjunctivae: conjunctivae normal Sclera: sclerae normal Pupils: PERRL Neck: Neck: supple and no JVD Chest: Chest palpation & inspection: normal inspection of the chest Other: coarse bilaterally Resp: Effort & Inspection: normal respiratory effort Auscultation: rales bilateral at the base and diminished lung sounds Cardio: Rate: regular rate Rhythm: regular rhythm Heart sounds: S1 normal and S2 normal GI: Inspection: non-distended Auscultation: normal bowel sounds and hypoactive bowel sounds Other: G-tube in place : Other: Sánchez catheter in place Urinary Catheter: Urinary Catheter: patent and draining and urine dark Skin: Nails: normal Other: right upper extremity IV site infiltration with blisters and denudation of the skin. Pressure ulcers Neuro: Cranial nerves: Yes PERRL Cognition (Neuro): abnormal cognition Motor exam (neuro): muscle tone abnormal Comatose Patient: corneal reflex present and response to n
[2019-02-21 09:59] LABS: Iron 20 ug/dL (49-181)
[2019-02-21 10:08] LABS: Percent Iron Saturation 11 % (20-50)
[2019-02-21 10:32] LABS: Folic Acid > 20.0 ng/mL (2.76->20); Vitamin B12 > 1000.0 pg/mL (239-931)
--- NOTE | 2019-02-21 13:56 | PCDIET ---
Nutrition Follow-Up Complete: Nutrition Diagnosis: Inadequate infusion of enteral nutrition related to aspiration as evidenced by NPO, no order for tube feedings at this time. Nutrition Goal: Patient to meet estimated nutritional needs. Goal in progress. Patient tolerating Two Siva HN @ 30mL/hr without documented residuals. MD ordered to hold tube feeding as sedation to be weaned. Last recorded weight is 64.1 kg which is stable. Bowel Motility: +BM today. Labs Reviewed: BNP (544), K (2.8), Alb (2.3) Meds Noted: Propofol at 5.7mL/hr (150kcal over 24 hour period), Ampicillin, LR @ 50mL/hr, MgSO4, Protonix, KCl, Florastor, Vitamin D Additional Notes: Multiple skin issues noted. Recommend continuing present tube feeding with Pro-Stat flush TID. Nutrition Monitoring and Evaluation: Follow up every Wednesday/Wednesday. Follow daily in ICU rounds.
[2019-02-21 19:34] LABS: Vancomycin Trough 9.2 ug/mL (10.0-20.0)
[2019-02-22] VITALS (25 sets, daily range): BP systolic 134–156; BP diastolic 71–100; PULSE 76–100; RESP 11–26; TEMP 36.9–37.2; O2SAT 98–100
[2019-02-22] MEDS: LEVALBUTEROL NEB 1.25 MG/3 ML 0.63 MG INHALATION ×4 (02:55→19:55)
[2019-02-22] MEDS: LACTATED RINGERS 1,000 ML 50 ML IV CONT (04:21)
[2019-02-22 04:54] LABS: Base Excess ABG 4.3 mEq/l (+/-2.0); Carboxyhemoglobin 0.3 % THb (0-2.0); Fractional Inspired Oxygen 30 %; HCO3 ABG 27.9 mEq/l (22.0-26.0); Methemoglobin ABG 0.6 %THb (0-1.5); Oxygen Content ABG 11.4 %vol (16.0-22.0); Oxygen Saturation ABG 98.1 % (95.0-100.0); PCO2 ABG 37.5 mmHg (35.0-45.0); PO2 ABG 102.8 mmHg (80.0-100.0); PO2 FiO2 Ratio Arterial Blood 3.43 %; Reduced Hemoglobin 3.1 %THb (0-5.0); Total Hemoglobin 8.3 g/dL (12.0-18.0); pH ABG 7.489 (7.350-7.450)
[2019-02-22 04:55] LABS: Device VENTILATOR; Modified Allen's Test Pass; Site Drawn LEFT RADIAL
[2019-02-22 04:56] LABS: Arterial Blood Gas PEEP 5 cmH2O; Arterial Blood Gas Vent Mode ASV
[2019-02-22 05:03] LABS: Hematocrit 24.1 % (42.0-52.0); Hemoglobin 7.2 g/dL (14.0-18.0); Mean Corpuscular HGB Conc 29.9 g/dl (32-36); Mean Corpuscular Volume 97.2 fl (80-100); Mean Platelet Volume 11.3 fl (7.4-10.4); Platelet Count Result 264 k/mm3 (150-375); Red Blood Count 2.48 M/mm3 (4.6-6.20); Red Cell Distribution Width 14.8 % (11.5-14.5); White Blood Count 6.9 K/mm3 (4.5-10.0)
[2019-02-22] MEDS: AMPICILLIN SODIUM/SULBACTAM 3 GM in SODIUM CHLORIDE 0.9% IV 100 ML IVPB ×3 (05:10→20:28)
[2019-02-22 05:16] LABS: Lactic Acid 1.8 mmol/L (0.7-2.1)
[2019-02-22 05:22] LABS: Blood Urea Nitrogen 9 mg/dL (9-20); Calcium 8.2 mg/dL (8.4-10.2); Carbon Dioxide 27 mmol/L (22-30); Chloride 112 mmol/L (98-107); Estimated CRCL calculation 139 ml/min; Estimated Glomerular Filt Rate > 60; Glucose 108 mg/dL (75-110); Magnesium 1.9 mg/dL (1.6-2.3); Phosphorus 2.9 mg/dL (2.5-4.5); Potassium 3.5 mmol/L (3.4-5.0); Sodium 142 mmol/L (137-145)
[2019-02-22 08:57] LABS: Immature Reticulocyte Fraction 16.8 % (3.0-15.9); Reticulocyte Hemoglobin Conten 29.7 pg (28.2-35.7); Reticulocyte Percent 3.82 % (0.7-4.3)
[2019-02-22] MEDS: FUROSEMIDE INJ 40 MG/4 ML VIAL IV PUSH (09:05)
[2019-02-22 09:06] LABS: Lactate Dehydrogenase 421 U/L (313-618)
[2019-02-22] MEDS: DOCUSATE SODIUM LIQ 100 MG/10 ML UDC 50 MG FEED TUBE (09:07)
[2019-02-22] MEDS: APIXABAN 5 MG TABLET FEED TUBE ×2 (09:07→16:47)
[2019-02-22] MEDS: CHOLECALCIFEROL 1,000 UNIT TABLET 1000 UNITS FEED TUBE (09:07)
[2019-02-22] MEDS: levETIRAcetam ORAL SOL 500 MG/5 ML UDC 1500 MG FEED TUBE ×2 (09:07→20:29)
[2019-02-22] MEDS: risperiDONE 1 MG TABLET FEED TUBE ×2 (09:08→16:47)
[2019-02-22] MEDS: PANTOPRAZOLE SODIUM IV 40 MG VIAL IV PUSH (09:08)
[2019-02-22] MEDS: SACCHAROMYCES BOULARDII 250 MG CAPSULE FEED TUBE ×2 (09:08→16:47)
[2019-02-22] MEDS: SILVERGEL (ELTA) 45 ML 1 APPLIC TOPICAL (09:09)
[2019-02-22] MEDS: POTASSIUM CHLORIDE 20 MEQ PACKET (FOR LIQUID) 40 MEQ PO (09:23)
--- NOTE | 2019-02-22 09:39 | PM.IMPN ---
Progress Note: A&P Assessment and Plan (1) Acute and chronic respiratory failure: Qualifiers: Respiratory failure complication: hypoxia Qualified Code(s): J96.21 - Acute and chronic respiratory failure with hypoxia Code(s): J96.20 - Acute and chronic respiratory failure, unspecified whether with hypoxia or hypercapnia Status: Acute Assessment and Plan: Likely due to recurrent aspiration of his tube feeds. Remains sedated on ventilator. Appreciate help from inventory worker. Discussed with inventory worker today. Hopeful attempt to wean off ventilator today. Will continue IV Unasyn and vancomycin. Continue IV fluids. Continue nebulizer treatments. Will continue to monitor. (2) Aspiration into airway: Qualifiers: Encounter type: initial encounter Qualified Code(s): T17.908A - Unspecified foreign body in respiratory tract, part unspecified causing other injury, initial encounter Code(s): T17.908A - Unspecified foreign body in respiratory tract, part unspecified causing other injury, initial encounter Status: Acute Assessment and Plan: Patient has chronic dysphagia. Tube feedings initially held but have now been resumed and being tolerated. Will continue to monitor closely. (3) Atrial fibrillation with RVR: Code(s): I48.91 - Unspecified atrial fibrillation Status: Acute Assessment and Plan: Initially presented with atrial fibrillation with RVR. Known chronic atrial fibrillation. Telemetry reviewed on 02/22/2019 with heart rate remaining controlled. Remains controlled with metoprolol. Continue Eliquis for anticoagulation. Will continue to monitor. (4) Seizure disorder: Code(s): G40.909 - Epilepsy, unspecified, not intractable, without status epilepticus Status: Chronic Assessment and Plan: Known seizure disorder. Remains stable without seizure activity. Continue Keppra and valproic acid per feeding tube. Will monitor. (5) Anemia: Qualifiers: Anemia type: other cause Other causes of anemia: chronic disease, other Qualified Code(s): D63.8 - Anemia in other chronic diseases classified elsewhere Code(s): D64.9 - Anemia, unspecified Status: Acute Assessment and Plan: Most likely anemia of chronic disease. Hemoglobin stable at 7.2 today. Still no signs of active bleeding. Will continue to monitor. Transfuse only if needed. (6) Bacteremia: Code(s): R78.81 - Bacteremia Status: Acute Assessment and Plan: One of 2 initial blood cultures positive coagulase-negative Staph. Most likely contaminant. Repeat cultures are negative at this time. Will follow. (7) DVT prophylaxis: Code(s): Z29.9 - Encounter for prophylactic measures, unspecified Status: Acute Assessment and Plan: SCDs. Time Spent With Patient Time with patient: 15 - 25 minutes Subjective Date/time seen: 02/22/19 09:39 Interval history: Date of Service: 02/22/2019. Admitted with acute on chronic respiratory failure requiring intubation. Remains on ventilator with sedation. Review of Systems Review of Systems: ROS unobtainable: due to endotracheal tube and unobtainable due to mental condition Exam Narrative: Exam Narrative: Sedated Const: General: no acute distress HENMT: Other: ET in place; OG in place Neck: Neck: supple Resp: Auscultation: no wheezes and diminished lung sounds Cardio: Rate: regular rate Rhythm: abnormal rhythm irregularly irregular GI: Inspection: non-distended Other: PEG tube in place with tube feedings Urinary Catheter: Urinary Catheter: patent and draining and urine clear Skin: Other: abrasion right forearm Neuro: Other: sedated Extrem: General: no edema Psych: Other: sedated Objective Data Vital Signs Vital Signs: Vital Signs - 24 hr 02/21/19 10:00 02/21/19 11:13 02/21/19 12:00 Temperature 36.8 C Pulse Rate 83 85 76 Respiratory Ra
--- NOTE | 2019-02-22 12:37 | WPDINTPN ---
Progress Note: A&P Assessment and Plan (1) Acute and chronic respiratory failure: Qualifiers: Respiratory failure complication: hypoxia Qualified Code(s): J96.21 - Acute and chronic respiratory failure with hypoxia Code(s): J96.20 - Acute and chronic respiratory failure, unspecified whether with hypoxia or hypercapnia Status: Acute Assessment and Plan: patient intubated on 02/18/2019 for presumed aspiration pneumonia/pneumonitis - patient on mechanical ventilation, 30% FiO2, chest x-ray and ABGs reviewed. Patient remains on ASV mode of ventilation all day yesterday and all night. - continue Unasyn and vancomycin blood cultures growing CoNS 1/2 bottles. Blood cultures have been repeated on 02/20/2019 - Patient is off all sedation since yesterday, placed patient on spontaneous breathing trial, held tube feeds, will obtain ABGs and evaluate for extubation (2) Seizure disorder: Code(s): G40.909 - Epilepsy, unspecified, not intractable, without status epilepticus Status: Chronic Assessment and Plan: continue Keppra and valproic acid per G-tube (3) Chronic atrial fibrillation: Code(s): I48.20 - Chronic atrial fibrillation, unspecified Status: Chronic Assessment and Plan: patient presented with atrial fibrillation RVR, post intubation has been in sinus rhythm - continue Eliquis per tube (4) Bacteremia: Code(s): R78.81 - Bacteremia Status: Acute Assessment and Plan: blood cultures growing Gram positive cocci in clusters 1/2 bottles. coag-negative staph aureus. Blood cultures have been repeated on 02/20/2019 - continue vancomycin, will deescalate if 2nd set of blood cultures are negative (5) DVT prophylaxis: Code(s): Z29.9 - Encounter for prophylactic measures, unspecified Status: Acute Assessment and Plan: Eliquis per tube (6) Anemia: Qualifiers: Anemia type: other cause Other causes of anemia: chronic disease, other Qualified Code(s): D63.8 - Anemia in other chronic diseases classified elsewhere Code(s): D64.9 - Anemia, unspecified Status: Acute Assessment and Plan: anemia of chronic disease most likely - will continue to monitor hemoglobin levels Additional Plan discussed with sister and updated them with patient's condition and plan of care. I answered all questions, she is aware that patient may be extubated today Code status: do not resuscitate critical care time spent: 32 minutes Subjective Date/time seen: 02/22/19 12:37 Interval history: Patient admitted on 02/18 with acute on chronic respiratory failure with hypoxia requiring intubation. Naseem RVR, severe sepsis 02/22/2019: patient remains intubated on CMV mode of ventilation, 30% FiO2 with O2 sats. Patient with adequate urine output. Right upper extremity blister with open skin secondary to IV infiltration, patient also has multiple small blisters on the right forearm. patient has been off propofol since the morning of 02/21/2019. Patient opens his eyes only, does not follow any commands. hemodynamically stable. Patient tolerating tube feeds. Review of Systems Review of Systems: ROS unobtainable: due to endotracheal tube Exam Const: General: comfortable and no acute distress Other: HENMT: Other: ETT in place Eyes: Conjunctivae: conjunctivae normal Sclera: sclerae normal Pupils: PERRL Neck: Neck: supple and no JVD Chest: Chest palpation & inspection: normal inspection of the chest Other: coarse bilaterally Resp: Effort & Inspection: normal respiratory effort Auscultation: clear to auscultation bilaterally and diminished lung sounds Cardio: Rate: regular rate Rhythm: regular rhythm Heart sounds: S1 normal and S2 normal GI: Inspection: non-distended GI Palp: Yes soft and No tender Auscultation: normal bowel sounds and hypoactive bowel sounds Other: G-tube in place :
[2019-02-22 12:58] LABS: Alveolar/Arterial O2 Gradient 51.3 mmHg; Base Excess ABG 3.9 mEq/l (+/-2.0); Device VENTILATOR; Fractional Inspired Oxygen 30 %; HCO3 ABG 27.1 mEq/l (22.0-26.0); Modified Allen's Test Pass; Oxygen Content ABG 12.8 %vol (16.0-22.0); Oxygen Saturation ABG 98.7 % (95.0-100.0); PCO2 ABG 35.2 mmHg (35.0-45.0); PO2 ABG 121.2 mmHg (80.0-100.0); PO2 FiO2 Ratio Arterial Blood 4.04 %; Site Drawn LEFT RADIAL; Total Hemoglobin 9.2 g/dL (12.0-18.0); pH ABG 7.504 (7.350-7.450)
[2019-02-22 12:59] LABS: Arterial Blood Gas PEEP 5 cmH2O; Arterial Blood Gas Pressure Support 8 cmH2O; Arterial Blood Gas Vent Mode SPONTANEOUS
[2019-02-22] MEDS: METOPROLOL TARTRATE 25 MG TABLET FEED TUBE (13:33)
[2019-02-23] VITALS (23 sets, daily range): BP systolic 125–153; BP diastolic 80–95; PULSE 78–102; RESP 14–21; TEMP 36.6–37.1; O2SAT 99–100
[2019-02-23] MEDS: AMPICILLIN SODIUM/SULBACTAM 3 GM in SODIUM CHLORIDE 0.9% IV 100 ML IVPB ×4 (00:35→18:22)
[2019-02-23] MEDS: LEVALBUTEROL NEB 1.25 MG/3 ML 0.63 MG INHALATION ×4 (01:38→20:18)
[2019-02-23 04:54] LABS: IFOB Positive Control Positive; Immunochemical Fecal Occult Bl Negative (N)
[2019-02-23 06:05] LABS: Hemoglobin 7.9 g/dL (14.0-18.0); Mean Corpuscular HGB Conc 30.4 g/dl (32-36); Mean Corpuscular Hemoglobin 29.6 pg (26-34); Mean Corpuscular Volume 97.4 fl (80-100); Mean Platelet Volume 11.3 fl (7.4-10.4); Platelet Count Result 278 k/mm3 (150-375); Red Blood Count 2.67 M/mm3 (4.6-6.20); Red Cell Distribution Width 14.8 % (11.5-14.5); White Blood Count 8.4 K/mm3 (4.5-10.0)
[2019-02-23 06:13] LABS: Blood Urea Nitrogen 8 mg/dL (9-20); Calcium 8.5 mg/dL (8.4-10.2); Carbon Dioxide 27 mmol/L (22-30); Chloride 106 mmol/L (98-107); Estimated CRCL calculation 202 ml/min; Estimated Glomerular Filt Rate > 60; Glucose 80 mg/dL (75-110); Lactic Acid 1.2 mmol/L (0.7-2.1); Magnesium 1.9 mg/dL (1.6-2.3); Phosphorus 3.2 mg/dL (2.5-4.5); Potassium 3.5 mmol/L (3.4-5.0); Sodium 137 mmol/L (137-145)
--- NOTE | 2019-02-23 08:05 | PM.IMPN ---
Progress Note: A&P Assessment and Plan (1) Acute and chronic respiratory failure: Qualifiers: Respiratory failure complication: hypoxia Qualified Code(s): J96.21 - Acute and chronic respiratory failure with hypoxia Code(s): J96.20 - Acute and chronic respiratory failure, unspecified whether with hypoxia or hypercapnia Status: Acute Assessment and Plan: Likely due to recurrent aspiration of his tube feeds. Successfully extubated on 02/22/19. On 1 L of oxygen by nasal cannula. Will continue nebulizer treatments along with IV Unasyn and vancomycin but will discontinue IV vancomycin with MRSA nasal culture negative. Off IV fluids.remains sedated on ventilator. Discussed with dimpling machine operator. Telemetry reviewed on 02/23/2019 with heart rate controlled. Will transfer to medical floor as stable. (2) Aspiration into airway: Qualifiers: Encounter type: initial encounter Qualified Code(s): T17.908A - Unspecified foreign body in respiratory tract, part unspecified causing other injury, initial encounter Code(s): T17.908A - Unspecified foreign body in respiratory tract, part unspecified causing other injury, initial encounter Status: Acute Assessment and Plan: Patient with known chronic dysphagia. Tube feedings initially held but have now been resumed and being tolerated. Will continue to monitor closely. (3) Atrial fibrillation with RVR: Code(s): I48.91 - Unspecified atrial fibrillation Status: Acute Assessment and Plan: Initially presented with atrial fibrillation with RVR. Known chronic atrial fibrillation. Telemetry reviewed with heart rate controlled as noted above. Will continue metoprolol. Continue Eliquis for anticoagulation. Will monitor clinically. (4) Seizure disorder: Code(s): G40.909 - Epilepsy, unspecified, not intractable, without status epilepticus Status: Chronic Assessment and Plan: Known seizure disorder. Remains stable without seizure activity. Continue Keppra and valproic acid per feeding tube. Will also restart home oxcarbazepine. Will monitor. (5) Anemia: Qualifiers: Anemia type: other cause Other causes of anemia: chronic disease, other Qualified Code(s): D63.8 - Anemia in other chronic diseases classified elsewhere Code(s): D64.9 - Anemia, unspecified Status: Acute Assessment and Plan: Most likely anemia of chronic disease. Hemoglobin stable at 7.9 today. Still no signs of active bleeding. Will continue to monitor. Transfuse only if needed. (6) Bacteremia: Code(s): R78.81 - Bacteremia Status: Acute Assessment and Plan: One of 2 initial blood cultures positive coagulase-negative Staph. Most likely contaminant. Repeat cultures remain negative thus far. Continue to monitor. (7) DVT prophylaxis: Code(s): Z29.9 - Encounter for prophylactic measures, unspecified Status: Acute Assessment and Plan: SCDs. Subjective Date/time seen: 02/23/19 08:05 Interval history: Date of Service: 02/23/2019. Admitted with acute on chronic respiratory failure requiring intubation. Successfully extubated on 02/22/2019. Patient nonverbal at baseline. Awake this morning. No issues overnight. Review of Systems Review of Systems: ROS unobtainable: unobtainable due to mental condition Exam Narrative: Exam Narrative: Awake. Const: General: no acute distress HENMT: Mouth: Yes moist mucous membranes Neck: Neck: supple Resp: Auscultation: no wheezes and diminished lung sounds Cardio: Rate: regular rate Rhythm: abnormal rhythm irregularly irregular GI: Inspection: non-distended Other: PEG tube in place with tube feedings Urinary Catheter: Urinary Catheter: patent and draining and urine clear Skin: Other: abrasion right forearm Neuro: Other: awake; nonverbal (baseline) Extrem: General: no edema Psych: Other: not agitated Obje
[2019-02-23] MEDS: DOCUSATE SODIUM LIQ 100 MG/10 ML UDC 50 MG FEED TUBE (08:40)
[2019-02-23] MEDS: levETIRAcetam ORAL SOL 500 MG/5 ML UDC 1500 MG FEED TUBE ×2 (08:40→21:57)
[2019-02-23] MEDS: CHOLECALCIFEROL 1,000 UNIT TABLET 1000 UNITS FEED TUBE (08:41)
[2019-02-23] MEDS: APIXABAN 5 MG TABLET FEED TUBE ×2 (08:41→18:16)
[2019-02-23] MEDS: PANTOPRAZOLE SODIUM IV 40 MG VIAL IV PUSH (08:42)
[2019-02-23] MEDS: METOPROLOL TARTRATE 25 MG TABLET FEED TUBE (08:42)
[2019-02-23] MEDS: risperiDONE 1 MG TABLET FEED TUBE ×2 (08:42→18:15)
[2019-02-23] MEDS: SILVERGEL (ELTA) 45 ML 1 APPLIC TOPICAL (08:43)
--- NOTE | 2019-02-23 09:57 | WPDINTPN ---
Progress Note: A&P Assessment and Plan (1) Acute and chronic respiratory failure: Qualifiers: Respiratory failure complication: hypoxia Qualified Code(s): J96.21 - Acute and chronic respiratory failure with hypoxia Code(s): J96.20 - Acute and chronic respiratory failure, unspecified whether with hypoxia or hypercapnia Status: Acute Assessment and Plan: EXTUBATED ON 02/22/2018 - patient intubated on 02/18/2019 for presumed aspiration pneumonia/pneumonitis - continue bronchodilators - continue Unasyn and vancomycin blood cultures growing CoNS 1/2 bottles. Blood cultures have been repeated on 02/20/2019 WHICH ARE NEGATIVE X2, vancomycin was discontinued (2) Seizure disorder: Code(s): G40.909 - Epilepsy, unspecified, not intractable, without status epilepticus Status: Chronic Assessment and Plan: continue Keppra and valproic acid per G-tube (3) Chronic atrial fibrillation: Code(s): I48.20 - Chronic atrial fibrillation, unspecified Status: Chronic Assessment and Plan: patient presented with atrial fibrillation RVR, post intubation has been in sinus rhythm - continue Eliquis per tube (4) Bacteremia: Code(s): R78.81 - Bacteremia Status: Acute Assessment and Plan: blood cultures growing Gram positive cocci in clusters 1/2 bottles. coag-negative staph aureus. Blood cultures have been repeated on 02/20/2019 are negative x2 - vancomycin was discontinued on 02/22/2019 (5) DVT prophylaxis: Code(s): Z29.9 - Encounter for prophylactic measures, unspecified Status: Acute Assessment and Plan: Eliquis per tube (6) Anemia: Qualifiers: Anemia type: other cause Other causes of anemia: chronic disease, other Qualified Code(s): D63.8 - Anemia in other chronic diseases classified elsewhere Code(s): D64.9 - Anemia, unspecified Status: Acute Assessment and Plan: anemia of chronic disease most likely - will continue to monitor hemoglobin levels Additional Plan discussed with sister and updated them with patient's condition and plan of care. I answered all questions, she is aware that patient may be extubated today Code status: do not resuscitate critical care time spent: 31 minutes Subjective Date/time seen: 02/23/19 09:57 Interval history: Patient admitted on 02/18 with acute on chronic respiratory failure with hypoxia requiring intubation. A.fib RVR, severe sepsis. Extubated on 02/22/2018 02/23/2019: patient was extubated yesterday, on room air with good O2 sats. Hemodynamically stable, adequate urine output and response to diuretics yesterday. Patient is tolerating his tube feeds, afebrile. Patient opens his eyes to his name does not follow commands. Patient is nonverbal at baseline Review of Systems Review of Systems: ROS unobtainable: unobtainable due to mental condition ( patient is nonverbal at baseline) Exam Const: General: comfortable and no acute distress Other: HENMT: Mouth: Yes moist mucous membranes Eyes: Conjunctivae: conjunctivae normal Sclera: sclerae normal Pupils: PERRL Neck: Neck: supple and no JVD Chest: Chest palpation & inspection: normal inspection of the chest Other: coarse bilaterally Resp: Effort & Inspection: normal respiratory effort Auscultation: clear to auscultation bilaterally Cardio: Rate: regular rate Rhythm: regular rhythm Heart sounds: S1 normal and S2 normal GI: Inspection: non-distended GI Palp: Yes soft and No tender Auscultation: normal bowel sounds and hypoactive bowel sounds Other: G-tube in place : Other: Sánchez catheter in place Urinary Catheter: Urinary Catheter: patent and draining and urine clear Skin: Nails: normal Other: right upper extremity IV site infiltration with blisters and denudation of the skin. Pressure ulcers Neuro: Cranial nerves: Yes PERRL Cognition (Neuro): abnormal cog
[2019-02-23] MEDS: OXcarbazepine 300 MG TABLET FEED TUBE ×3 (11:07→18:15)
[2019-02-23] MEDS: POTASSIUM CHLORIDE 20 MEQ PACKET (FOR LIQUID) 40 MEQ PO (11:07)
[2019-02-23] MEDS: SACCHAROMYCES BOULARDII 250 MG CAPSULE FEED TUBE ×2 (11:08→18:15)
[2019-02-23 13:46] LABS: Glucose Point of Care 84 (65-105)
--- NOTE | 2019-02-23 14:10 | PCDIET ---
ICU Rounding Note: Patient has been extubated. Continues on Two Siva HN @ 30mL/hr with Pro-Stat flush TID via PEG. Last recorded weight is 72.9kg which is decreased from yesterday (still up from admission). Bowel Motility: +BM x 3 today. Labs Reviewed: BUN (8), Cr (0.3), Hgb (7.9), Hct (26.0) Meds Noted: s/p KCl, Ampicillin, Colace, Protonix, Florastor, Vitamin D Additional Notes: Recommend continuing Two Siva HN. If patient continues to tolerate well, recommend increasing to 50mL/hr rate over the next 1-2 days for 2200kcal, 91g protein and 770mL free water. Would also stop Pro-Stat once Two Siva @ 50ml/hr achieved. Following daily in ICU rounds. Assessing/reassessing every Wednesday/Wednesday.
[2019-02-24] VITALS (13 sets, daily range): BP systolic 118–155; BP diastolic 71–97; PULSE 87–99; RESP 14–20; TEMP 36.4–36.8; O2SAT 99–100
[2019-02-24] MEDS: AMPICILLIN SODIUM/SULBACTAM 3 GM in SODIUM CHLORIDE 0.9% IV 100 ML IVPB ×5 (01:03→23:19)
[2019-02-24] MEDS: LEVALBUTEROL NEB 1.25 MG/3 ML 0.63 MG INHALATION ×4 (02:14→19:47)
[2019-02-24 06:02] LABS: Hematocrit 26.7 % (42.0-52.0); Hemoglobin 8.1 g/dL (14.0-18.0); Mean Corpuscular HGB Conc 30.3 g/dl (32-36); Mean Corpuscular Hemoglobin 28.9 pg (26-34); Mean Corpuscular Volume 95.4 fl (80-100); Mean Platelet Volume 10.9 fl (7.4-10.4); Platelet Count Result 279 k/mm3 (150-375); Red Cell Distribution Width 14.9 % (11.5-14.5); White Blood Count 7.5 K/mm3 (4.5-10.0)
[2019-02-24 06:05] LABS: Lactic Acid 1.3 mmol/L (0.7-2.1)
[2019-02-24 06:22] LABS: Blood Urea Nitrogen 8 mg/dL (9-20); Calcium 8.4 mg/dL (8.4-10.2); Carbon Dioxide 29 mmol/L (22-30); Chloride 104 mmol/L (98-107); Estimated CRCL calculation 146 ml/min; Estimated Glomerular Filt Rate > 60; Glucose 87 mg/dL (75-110); Magnesium 1.9 mg/dL (1.6-2.3); Phosphorus 3.1 mg/dL (2.5-4.5); Potassium 3.6 mmol/L (3.4-5.0); Sodium 137 mmol/L (137-145)
--- NOTE | 2019-02-24 07:08 | WPDCDIQUERY2 ---
CDI Query Clarification Request Hospitalist has documented Aspiration into airway, patient with chronic dysphagia. Track Repairer Helper has documented aspiration pneumonia/pneumonitis CXRIMPRESSION: 1. Subtle increasing opacities in the right lower lung zone which could represent atelectasis, pneumonia or mild pulmonary edema. Patient is on Unasyn. Please clarify if aspiration pneumonia/pneumonitis has been ruled in or ruled out.
[2019-02-24] MEDS: CHOLECALCIFEROL 1,000 UNIT TABLET 1000 UNITS FEED TUBE (09:15)
[2019-02-24] MEDS: risperiDONE 1 MG TABLET FEED TUBE ×2 (09:15→17:20)
[2019-02-24] MEDS: SACCHAROMYCES BOULARDII 250 MG CAPSULE FEED TUBE ×2 (09:15→17:20)
[2019-02-24] MEDS: METOPROLOL TARTRATE 25 MG TABLET FEED TUBE (09:16)
[2019-02-24] MEDS: levETIRAcetam ORAL SOL 500 MG/5 ML UDC 1500 MG FEED TUBE ×2 (09:21→23:19)
[2019-02-24] MEDS: SILVERGEL (ELTA) 45 ML 1 APPLIC TOPICAL (09:21)
[2019-02-24] MEDS: DOCUSATE SODIUM LIQ 100 MG/10 ML UDC 50 MG FEED TUBE (09:21)
[2019-02-24] MEDS: PANTOPRAZOLE SODIUM IV 40 MG VIAL IV PUSH (09:23)
[2019-02-24] MEDS: OXcarbazepine 300 MG TABLET FEED TUBE ×3 (09:23→17:20)
--- NOTE | 2019-02-24 10:03 | PM.IMPN ---
Progress Note: A&P Assessment and Plan (1) Acute and chronic respiratory failure: Qualifiers: Respiratory failure complication: hypoxia Qualified Code(s): J96.21 - Acute and chronic respiratory failure with hypoxia Code(s): J96.20 - Acute and chronic respiratory failure, unspecified whether with hypoxia or hypercapnia Status: Acute Assessment and Plan: Likely due to recurrent aspiration of his tube feeds resulting in aspiration pneumonia. Successfully extubated on 02/22/2019. On IV Unasyn alone at this point and improving. On room air. Will continue nebulizer treatments. MRSA nasal culture negative with IV vancomycin already discontinued. Possible discharge in next 1-2 days if remains stable. (2) Pneumonia: Qualifiers: Pneumonia type: aspiration pneumonia Aspiration pneumonia type: unspecified Laterality: bilateral Lung location: lower lobe of lung Qualified Code(s): J69.0 - Pneumonitis due to inhalation of food and vomit Code(s): J18.9 - Pneumonia, unspecified organism Status: Acute Assessment and Plan: Presumed aspiration pneumonia on admission with reason for intubation initially. Chest x-ray today with interstitial pattern at the bilateral lower lung zones. Patient with known chronic dysphagia. Tube feedings initially held due to probable aspiration but have now been resumed and being tolerated. Will continue to monitor closely. (3) Atrial fibrillation with RVR: Code(s): I48.91 - Unspecified atrial fibrillation Status: Acute Assessment and Plan: Initially presented with atrial fibrillation with RVR. Known chronic atrial fibrillation. Heart rate currently controlled with metoprolol. Has been on Eliquis for anticoagulation but will hold today with bloody urine. Continue to monitor. (4) Gross hematuria: Code(s): R31.0 - Gross hematuria Status: Acute Assessment and Plan: Noted today. Will hold Eliquis. Suspect most likely from Sánchez trauma. Plan to replace Sánchez catheter later today. Normally does not have Sánchez catheter and would like to have completely removed prior to discharge if possible. (5) Seizure disorder: Code(s): G40.909 - Epilepsy, unspecified, not intractable, without status epilepticus Status: Chronic Assessment and Plan: Known seizure disorder. Remains stable without seizure activity. Continue Keppra, oxcarbazepine and valproic acid per feeding tube. Will monitor. Discussed with sister patient's general decline over the past year most likely result of recurrent seizure problems. He is a DNR. (6) Anemia: Qualifiers: Anemia type: other cause Other causes of anemia: chronic disease, other Qualified Code(s): D63.8 - Anemia in other chronic diseases classified elsewhere Code(s): D64.9 - Anemia, unspecified Status: Acute Assessment and Plan: Most likely anemia of chronic disease. Hemoglobin increased to 8.1 today. Will monitor with noted hematuria. (7) Bacteremia: Code(s): R78.81 - Bacteremia Status: Acute Assessment and Plan: One of 2 initial blood cultures positive coagulase-negative Staph. Most likely contaminant. Repeat cultures remain negative. Continue to monitor. (8) DVT prophylaxis: Code(s): Z29.9 - Encounter for prophylactic measures, unspecified Status: Acute Assessment and Plan: Eliquis on hold today. SCDs remain in place. Time Spent With Patient Time with patient: 15 - 25 minutes Subjective Date/time seen: 02/24/19 10:03 Interval history: Date of Service: 02/24/2019. Admitted with acute on chronic respiratory failure requiring intubation. Successfully extubated on 02/22/2019. Patient nonverbal at baseline. Sister in room today. Will not awaken for me although sister reports did open his eyes earlier. Nurse has noticed blood in urine. Review of Systems Review of Systems: GARRY mason
--- NOTE | 2019-02-24 10:58 | PCDIET ---
Nutrition Follow-Up Complete: Nutrition Diagnosis: Inadequate infusion of enteral nutrition related to aspiration as evidenced by NPO, no order for tube feedings at this time. Nutrition Goal: Patient to meet estimated nutritional needs. Goal in progress. Tube feedings well tolerated (Two Siva HN @ 30mL/hr) with no documented residuals. Recommend increasing Two Siva HN to 50mL/hr x 22 hours/day for 220kcal, 91g protein and 770mL free water. Recommend 30mL water flush every 4 hours and stopping Pro-Stat supplement due to increased rate meeting needs without protein supplement. Last recorded weight is 67.2 kg which is decreased. I/O negative. Bowel Motility: +BM today. Labs Reviewed: BUN (8), Cr (0.4), Hgb (8.1), Hct (26.7) Meds Noted: Ampicillin, Colace, Protonix, Florastor, Vitamin D Additional Notes: Multiple skin issues documented. Will continue to monitor with same goal. Nutrition Monitoring and Evaluation: Follow up every Wednesday/Wednesday.
[2019-02-24 11:31] LABS: Haptoglobin 178 mg/dL (43-212)
--- NOTE | 2019-02-24 20:19 | PC.NURSE ---
This patient, Yves Rodriguez, was transferred to [facility] on 02/24/19 at 2009. Personal belongings sent with patient. Belongings list checked. Report given to Yves ALMEIDA. Appropriate documentation sent with patient.
[2019-02-25] VITALS (13 sets, daily range): BP systolic 118–138; BP diastolic 77–78; PULSE 81–108; RESP 16–21; TEMP 36.3–36.6; O2SAT 97–100
[2019-02-25] MEDS: LEVALBUTEROL NEB 1.25 MG/3 ML 0.63 MG INHALATION ×4 (01:45→20:37)
[2019-02-25] MEDS: AMPICILLIN SODIUM/SULBACTAM 3 GM in SODIUM CHLORIDE 0.9% IV 100 ML IVPB ×4 (06:13→23:10)
[2019-02-25 06:35] LABS: Hematocrit 27.2 % (42.0-52.0); Hemoglobin 8.2 g/dL (14.0-18.0); Mean Corpuscular HGB Conc 30.1 g/dl (32-36); Mean Corpuscular Hemoglobin 29.1 pg (26-34); Mean Corpuscular Volume 96.5 fl (80-100); Mean Platelet Volume 11.3 fl (7.4-10.4); Platelet Count Result 269 k/mm3 (150-375); Red Blood Count 2.82 M/mm3 (4.6-6.20); Red Cell Distribution Width 14.9 % (11.5-14.5); White Blood Count 7.2 K/mm3 (4.5-10.0)
[2019-02-25 06:55] LABS: Lactic Acid 1.8 mmol/L (0.7-2.1)
[2019-02-25 06:59] LABS: Blood Urea Nitrogen 15 mg/dL (9-20); Calcium 8.4 mg/dL (8.4-10.2); Carbon Dioxide 29 mmol/L (22-30); Chloride 102 mmol/L (98-107); Estimated CRCL calculation 146 ml/min; Estimated Glomerular Filt Rate > 60; Glucose 107 mg/dL (75-110); Magnesium 1.9 mg/dL (1.6-2.3); Phosphorus 2.8 mg/dL (2.5-4.5); Potassium 3.7 mmol/L (3.4-5.0); Sodium 135 mmol/L (137-145)
[2019-02-25] MEDS: METOPROLOL TARTRATE 25 MG TABLET FEED TUBE (09:20)
[2019-02-25] MEDS: OXcarbazepine 300 MG TABLET FEED TUBE ×3 (09:20→17:49)
[2019-02-25] MEDS: SACCHAROMYCES BOULARDII 250 MG CAPSULE FEED TUBE ×2 (09:20→17:49)
[2019-02-25] MEDS: PANTOPRAZOLE SODIUM IV 40 MG VIAL IV PUSH (09:20)
[2019-02-25] MEDS: levETIRAcetam ORAL SOL 500 MG/5 ML UDC 1500 MG FEED TUBE ×2 (09:21→20:44)
[2019-02-25] MEDS: DOCUSATE SODIUM LIQ 100 MG/10 ML UDC 50 MG FEED TUBE (09:22)
[2019-02-25] MEDS: risperiDONE 1 MG TABLET FEED TUBE ×2 (09:24→17:49)
[2019-02-25] MEDS: CHOLECALCIFEROL 1,000 UNIT TABLET 1000 UNITS FEED TUBE (09:24)
[2019-02-25] MEDS: SILVERGEL (ELTA) 45 ML 1 APPLIC TOPICAL (11:19)
--- NOTE | 2019-02-25 15:03 | PM.IMPN ---
Progress Note: A&P Assessment and Plan (1) Acute and chronic respiratory failure: Qualifiers: Respiratory failure complication: hypoxia Qualified Code(s): J96.21 - Acute and chronic respiratory failure with hypoxia Code(s): J96.20 - Acute and chronic respiratory failure, unspecified whether with hypoxia or hypercapnia Status: Acute Assessment and Plan: Likely due to recurrent aspiration of his tube feeds resulting in aspiration pneumonia. Successfully extubated on 02/22/2019. Will continue IV Unasyn alone today. Remains on room air. Will continue nebulizer treatments. MRSA nasal culture negative with IV vancomycin already discontinued. Possible discharge back to nursing facility tomorrow if stable. (2) Pneumonia: Qualifiers: Aspiration pneumonia type: unspecified Laterality: bilateral Lung location: lower lobe of lung Pneumonia type: aspiration pneumonia Qualified Code(s): J69.0 - Pneumonitis due to inhalation of food and vomit Code(s): J18.9 - Pneumonia, unspecified organism Status: Acute Assessment and Plan: Presumed aspiration pneumonia on admission with reason for intubation initially. Chest x-ray on 02/24/2019 with interstitial pattern at the bilateral lower lung zones. Patient with known chronic dysphagia. Tube feedings initially held due to probable aspiration but have now been resumed and being tolerated. Currently on IV Zosyn day 8. Will leave IV antibiotics today with hematuria but anticipate discontinuing tomorrow. On room air. WBC normal at 7.2 today. Will continue to monitor closely. (3) Atrial fibrillation with RVR: Code(s): I48.91 - Unspecified atrial fibrillation Status: Acute Assessment and Plan: Initially presented with atrial fibrillation with RVR. Known chronic atrial fibrillation. Heart rate remained controlled with metoprolol. Has been on Eliquis for anticoagulation but will hold again today with improving hematuria. Will continue to monitor. Possibly will not restart Eliquis depending on reassessment tomorrow. (4) Gross hematuria: Code(s): R31.0 - Gross hematuria Status: Acute Assessment and Plan: Eliquis held yesterday. Will continue to hold today with urine clearing. Does not normally have Sánchez catheter and may be result trauma along with anticoagulation. Previously discussed with sister possibility of not resuming Eliquis. I will reassess tomorrow. (5) Seizure disorder: Code(s): G40.909 - Epilepsy, unspecified, not intractable, without status epilepticus Status: Chronic Assessment and Plan: Known seizure disorder. Currently stable. No seizure activity. Keppra, oxcarbazepine and valproic acid per feeding tube. Will monitor. Discussed with sister on 02/24/2019 patient's general decline over the past year most likely result of recurrent seizure problems. He remains DNR. (6) Anemia: Qualifiers: Anemia type: other cause Other causes of anemia: chronic disease, other Qualified Code(s): D63.8 - Anemia in other chronic diseases classified elsewhere Code(s): D64.9 - Anemia, unspecified Status: Acute Assessment and Plan: Most likely anemia of chronic disease. Hemoglobin stable at 8.2 today. Will monitor with noted hematuria. (7) Bacteremia: Code(s): R78.81 - Bacteremia Status: Acute Assessment and Plan: One of 2 initial blood cultures positive coagulase-negative Staph. Most likely contaminant. Repeat cultures remain negative. Continue to monitor. (8) DVT prophylaxis: Code(s): Z29.9 - Encounter for prophylactic measures, unspecified Status: Acute Assessment and Plan: Eliquis remains on hold today. SCDs remain in place. Time Spent With Patient Time with patient: 15 - 25 minutes Subjective Date/time seen: 02/25/19 15:03 Interval history: Date of Service: 02/25/2019. Admitted with acute
[2019-02-25 23:22] LABS: Glucose Point of Care 87 (65-105)
[2019-02-26] MEDS: LEVALBUTEROL NEB 1.25 MG/3 ML 0.63 MG INHALATION ×2 (03:08→08:13)
[2019-02-26 03:10] VITALS: PULSE 106; RESP 18
[2019-02-26 03:20] VITALS: PULSE 103; RESP 18
[2019-02-26 05:31] LABS: Glucose Point of Care 86 (65-105)
[2019-02-26] MEDS: AMPICILLIN SODIUM/SULBACTAM 3 GM in SODIUM CHLORIDE 0.9% IV 100 ML IVPB (05:49)
[2019-02-26 06:00] VITALS: BP 102/70; PULSE 103; RESP 21; TEMP 36.1; O2SAT 100
[2019-02-26 06:01] LABS: Hematocrit 29.4 % (42.0-52.0); Hemoglobin 8.7 g/dL (14.0-18.0); Mean Corpuscular HGB Conc 29.6 g/dl (32-36); Mean Corpuscular Hemoglobin 28.6 pg (26-34); Mean Corpuscular Volume 96.7 fl (80-100); Mean Platelet Volume 11.3 fl (7.4-10.4); Platelet Count Result 268 k/mm3 (150-375); Red Blood Count 3.04 M/mm3 (4.6-6.20); Red Cell Distribution Width 15.3 % (11.5-14.5); White Blood Count 7.2 K/mm3 (4.5-10.0)
[2019-02-26 06:13] LABS: Blood Urea Nitrogen 16 mg/dL (9-20); Calcium 8.5 mg/dL (8.4-10.2); Carbon Dioxide 30 mmol/L (22-30); Chloride 105 mmol/L (98-107); Estimated CRCL calculation 182 ml/min; Estimated Glomerular Filt Rate > 60; Glucose 107 mg/dL (75-110); Potassium 3.8 mmol/L (3.4-5.0); Sodium 139 mmol/L (137-145)
[2019-02-26 08:14] VITALS: PULSE 101; RESP 16; O2SAT 93
[2019-02-26 08:24] VITALS: PULSE 103; RESP 18
--- NOTE | 2019-02-26 09:36 | PM.IMPN ---
Progress Note: A&P Assessment and Plan (1) Acute and chronic respiratory failure: Qualifiers: Respiratory failure complication: hypoxia Qualified Code(s): J96.21 - Acute and chronic respiratory failure with hypoxia Code(s): J96.20 - Acute and chronic respiratory failure, unspecified whether with hypoxia or hypercapnia Status: Acute Assessment and Plan: Likely due to recurrent aspiration of his tube feeds resulting in aspiration pneumonia. Successfully extubated on 02/22/2019. Has completed 8 days IV Unasyn and will discontinued. On room air. Continue nebulizer treatments. MRSA nasal culture negative. Discussed overall condition with patient's sister, Madalyn Agrawal, who is his health surrogate. Sister understands patient will not improved beyond his current condition. He is already DNR. I did discuss with her the possibility of hospice care. Sister would like to proceed with hospice referral. Care coordination notified. Will either range for hospice meeting here prior to discharge or at facility. Patient is ready to discharge. Anticipate discharge later today once decision on where hospice meeting will occur is decided. (2) Pneumonia: Qualifiers: Pneumonia type: aspiration pneumonia Aspiration pneumonia type: unspecified Laterality: bilateral Lung location: lower lobe of lung Qualified Code(s): J69.0 - Pneumonitis due to inhalation of food and vomit Code(s): J18.9 - Pneumonia, unspecified organism Status: Acute Assessment and Plan: Presumed aspiration pneumonia on admission with reason for intubation initially. Chest x-ray on 02/24/2019 with interstitial pattern at the bilateral lower lung zones. Patient with known chronic dysphagia. Tube feedings initially held due to probable aspiration but subsequently resumed and being tolerated. Incorrection to prior note, patient has been on IV Unasyn and will discontinue as he has completed 8 days IV treatment. Remains on room air. WBC remains normal. Sister aware recurrent aspiration is most likely. (3) Atrial fibrillation with RVR: Code(s): I48.91 - Unspecified atrial fibrillation Status: Acute Assessment and Plan: Initially presented with atrial fibrillation with RVR. Known chronic atrial fibrillation. Heart rate now remains controlled with metoprolol. Has been on Eliquis for anticoagulation but held for the past 2 days due to hematuria. Urine is improved. Did discuss with sister whether or not she would want to restart Eliquis understanding possibility for CVA with no anticoagulation and atrial fibrillation. Sister requests discontinuing Eliquis at this time. (4) Gross hematuria: Code(s): R31.0 - Gross hematuria Status: Acute Assessment and Plan: Improved after holding Eliquis x2 days. Will check with facility as to whether or not preference is for catheter to remain in place or removed given plan for hospice referral. (5) Seizure disorder: Code(s): G40.909 - Epilepsy, unspecified, not intractable, without status epilepticus Status: Chronic Assessment and Plan: Known seizure disorder. Remains stable. No seizure activity. Keppra, oxcarbazepine and valproic acid per feeding tube. Plan for hospice referral. (6) Anemia: Qualifiers: Anemia type: other cause Other causes of anemia: chronic disease, other Qualified Code(s): D63.8 - Anemia in other chronic diseases classified elsewhere Code(s): D64.9 - Anemia, unspecified Status: Acute Assessment and Plan: Most likely anemia of chronic disease. Hemoglobin 8.7 today. With plan for hospice, will not recheck. (7) Bacteremia: Code(s): R78.81 - Bacteremia Status: Acute Assessment and Plan: One of 2 initial blood cultures positive coagulase-negative Staph. Most likely contaminant. Repeat cultures remain negative. (8) DVT prophylaxis: Code(s): Z29.9 -
[2019-02-26] MEDS: PANTOPRAZOLE SODIUM IV 40 MG VIAL IV PUSH (09:46)
[2019-02-26] MEDS: SACCHAROMYCES BOULARDII 250 MG CAPSULE FEED TUBE ×2 (09:46→17:09)
[2019-02-26] MEDS: risperiDONE 1 MG TABLET FEED TUBE ×2 (09:46→17:09)
[2019-02-26] MEDS: OXcarbazepine 300 MG TABLET FEED TUBE ×3 (09:46→17:09)
[2019-02-26] MEDS: DOCUSATE SODIUM LIQ 100 MG/10 ML UDC 50 MG FEED TUBE (09:46)
[2019-02-26] MEDS: levETIRAcetam ORAL SOL 500 MG/5 ML UDC 1500 MG FEED TUBE (09:47)
[2019-02-26 09:48] VITALS: PULSE 100
[2019-02-26] MEDS: CHOLECALCIFEROL 1,000 UNIT TABLET 1000 UNITS FEED TUBE (09:48)
[2019-02-26] MEDS: METOPROLOL TARTRATE 25 MG TABLET FEED TUBE (09:48)
[2019-02-26] MEDS: SILVERGEL (ELTA) 45 ML 1 APPLIC TOPICAL (09:49)
--- NOTE | 2019-02-26 18:20 | PM.DS ---
DS: Diagnosis Admitting Diagnosis Admitting Diagnosis: Acute and chronic respiratory failure with hypoxia Discharge Diagnosis (1) Acute and chronic respiratory failure: Qualifiers: Respiratory failure complication: hypoxia Qualified Code(s): J96.21 - Acute and chronic respiratory failure with hypoxia Code(s): J96.20 - Acute and chronic respiratory failure, unspecified whether with hypoxia or hypercapnia Status: Acute (2) Pneumonia: Qualifiers: Aspiration pneumonia type: unspecified Laterality: bilateral Lung location: lower lobe of lung Pneumonia type: aspiration pneumonia Qualified Code(s): J69.0 - Pneumonitis due to inhalation of food and vomit Code(s): J18.9 - Pneumonia, unspecified organism Status: Acute (3) Atrial fibrillation with RVR: Code(s): I48.91 - Unspecified atrial fibrillation Status: Acute Assessment and Plan: Initially presented with atrial fibrillation with RVR. Known chronic atrial fibrillation. Heart rate now remains controlled with metoprolol. Has been on Eliquis for anticoagulation but held for the past 2 days due to hematuria. Urine is improved. Did discuss with sister whether or not she would want to restart Eliquis understanding possibility for CVA with no anticoagulation and atrial fibrillation. Sister requests discontinuing Eliquis at this time. (4) Gross hematuria: Code(s): R31.0 - Gross hematuria Status: Acute (5) Seizure disorder: Code(s): G40.909 - Epilepsy, unspecified, not intractable, without status epilepticus Status: Chronic (6) Anemia: Qualifiers: Anemia type: other cause Other causes of anemia: chronic disease, other Qualified Code(s): D63.8 - Anemia in other chronic diseases classified elsewhere Code(s): D64.9 - Anemia, unspecified Status: Acute (7) Bacteremia: Code(s): R78.81 - Bacteremia Status: Acute DS: Summary Hospital Course Reason for hospitalization: Respiratory distress. Hospital Course: Date of Service of Discharge: February 26, 2019. History of Present Illness: Patient is 64-year-old male with known medical history of schizoaffective schizophrenia, seizure disorder, CVAs with chronic dysphagia with PEG tube in place and atrial fibrillation on chronic anticoagulation residing at [facility] who was sent in by nursing staff due to respiratory distress. Patient is nonverbal at baseline. [facility] staff noted patient to have gurgling at 2:00 a.m.. Oxygen saturations on arrival to the emergency room were in the 40s on a 15 L non-rebreather. He was also found to be in atrial fibrillation with RVR and started on diltiazem drip. He was briefly hypotensive. Given his condition at that time and full code, patient was intubated. Additional findings were consistent with pneumonia from aspiration. As a result, he was admitted to the intensive care unit for further evaluation and treatment. Course in Hospital: As noted, patient was admitted to the intensive care unit. He was intubated in the emergency room. Patient was seen by safety leader. He was placed on nebulizer treatments along with IV Unasyn and vancomycin. Cultures were done with initial blood cultures with 1 of to positive for coagulase-negative Staph and felt to be contaminant. Repeat cultures were negative at time of discharge. MRSA nasal culture was also negative. He was able to discontinue IV vancomycin once MRSA nasal culture was negative. He did complete 8 days of IV Unasyn. He did additionally received nebulizer treatments. Patient was able to be successfully extubated on 02/22/2019. He subsequently was able to wean to room air. With the patient stable, he was moved to medical floor status on 02/23/2019 and remained on the medical floor for the duration of his stay. He was having no breathing problems at the time of discharge but family was advised risk o
--- NOTE | 2019-02-26 19:01 | PC.NURSE ---
[facility] notified of updates in meds administered since d/c instructions were printed and faxed. [facility] nurse notified that ambulance has arrived and patient will be transporting to facility at this time.
== END 2019-02-26 19:00 | disposition hospice, home (50) | DRG 208 ==
LOC: ANHED 02:49 → ANHICU 04:34 → ANH2MED 02-24 21:13
PROVIDERS: Hospitalist; Internal Medicine; Admitting Provider Internal Medicine; Emergency Provider Emergency Medicine; Visit Provider Internal Medicine
DX: J96.21 Acute and chronic respiratory failure with hypoxia (principal); J69.0 Pneumonitis due to inhalation of food and vomit; I48.20 Chronic atrial fibrillation, unspecified; T83.83XA Hemorrhage due to genitourinary prosthetic devices, implants and grafts, initial encounter; F25.9 Schizoaffective disorder, unspecified; I69.391 Dysphagia following cerebral infarction; R13.10 Dysphagia, unspecified; G40.909 Epilepsy, unspecified, not intractable, without status epilepticus; Z93.1 Gastrostomy status; Z79.01 Long term (current) use of anticoagulants; Z86.19 Personal history of other infectious and parasitic diseases; T17.908A Unspecified foreign body in respiratory tract, part unspecified causing other injury, initial encounter; D63.8 Anemia in other chronic diseases classified elsewhere; Z66 Do not resuscitate; I95.89 Other hypotension; R31.9 Hematuria, unspecified; Y84.6 Urinary catheterization as the cause of abnormal reaction of the patient, or of later complication, without mention of misadventure at the time of the procedure; L89.890 Pressure ulcer of other site, unstageable
CPT/HCPCS: 31500; 36415; 36556; 36600; 71045; 80048; 80053; 80202; 81001; 82274; 82375; 82550; 82607; 82746; 82805; 83010; 83050; 83540; 83550; 83605; 83615; 83735; 83880; 84100; 84484; 85025; 85027; 85046; 85610; 85730; 86140; 87040; 87081; 87147; 87186; 93005; 94003; 94640; 96361; 96365; 96375; 99285; A9270; C1751; C9113; J0295; J0330; J1200; J1644; J1940; J1953; J2250; J2704; J3370; J3475; J3480; J7030; J7120